=== PATIENT | female | born 1970 | race Caucasian/White ===

== ENCOUNTER 2018-03-10 08:03 | Inpatient (IN) | payer MEDICARE, MEDICAID ==
[~2018-03-10] VITALS: Ht 154.9 cm; Wt 79.8 kg
[~2018-03-10 08:03] MED LIST: ALBU18HF2 IH
--- NOTE | 2018-03-10 08:15 | NUR ---
PT BIB [facility] From Home "Had syncopal episode after dialysis yesterday fell on R side" PT IS AAOX4, NOT IN RESPIRATORY DISTRESS, V/S STABLE, SEEN AND EXAMINED BY DR. THACKER. KEPT RESTED AND COMFORTABLE.
[2018-03-10] MEDS: ACETAMINOPHEN ES 500 MG TABLET PO ONE ×2 (08:16→08:19)
--- NOTE | 2018-03-10 08:16 | NUR ---
PT LABS DRAWNED AND SENT TO LAB. AWAITING RESULTS.
[2018-03-10] MEDS ORDERED: ACETAMINOPHEN ES 500 MG TABLET ONE (08:17)
[2018-03-10 08:23] LABS: BASOPHILS # (AUTO) 0.1 /CMM (0.0-0.2); BASOPHILS % (AUTO) 1.2 % (0.0-2.0); EOSINOPHILS % (AUTO) 0.1 % (0.0-6.0); HEMATOCRIT 26 % (33-45); HEMOGLOBIN 8.1 g/dL (11.5-14.8); LYMPHOCYTES # (AUTO) 2.2 /CMM (0.8-4.8); MEAN CORPUSCULAR HGB CONC 32 g/dl (31.0-36.0); MEAN CORPUSCULAR VOLUME 103 fL (82-100); MONOCYTES # (AUTO) 0.7 /CMM (0.1-1.30); MONOCYTES % (AUTO) 7.7 % (2.0-12.0); NEUTROPHILS # (AUTO) 6.1 /CMM (1.8-8.9); PLATELET COUNT (AUTO) 277 /CMM (150-450); RED BLOOD CELL COUNT(AUTO) 2.49 MIL/uL (4.0-5.2); WHITE BLOOD COUNT (AUTO) 9.2 K/uL (4.3-11.0)
[2018-03-10] MEDS ORDERED: ATOR40TA PO (08:28)
[2018-03-10] MEDS ORDERED: FOLI0.8T23 PO (08:28)
[2018-03-10] MEDS ORDERED: AMLO10TA7 PO (08:28)
[2018-03-10] MEDS ORDERED: CALC667C6 PO (08:28)
[2018-03-10] MEDS ORDERED: NITR0.4T48 PO (08:28)
[2018-03-10] MEDS ORDERED: CARV6.252 PO (08:28)
[2018-03-10] MEDS ORDERED: PRED20TA PO (08:28)
[2018-03-10] MEDS ORDERED: ONDA4TAB10 PO (08:28)
[2018-03-10 08:39] LABS: CALCIUM, SERUM 9.2 mg/dL (8.5-10.1); CREATININE 6.6 mg/dL (0.6-1.3); POTASSIUM 4.1 mmol/L (3.5-5.1)
--- NOTE | 2018-03-10 08:40 | NUR ---
PT IS WHEELED TO CT SCAN VIA [facility].
[2018-03-10 08:45] LABS: ALBUMIN 2.9 g/dL (3.4-5.0); BILIRUBIN,DIRECT 0.1 mg/dL (0.0-0.2); BILIRUBIN,TOTAL 0.3 mg/dL (0.2-1.0); TOTAL PROTEIN, SERUM 6.9 g/dL (6.4-8.2)
[2018-03-10] MEDS ORDERED: HYDROMORPHONE INJ 2 MG/ML DISP.SYRIN IV ONE ×2 (10:30→13:00)
[2018-03-10] MEDS ORDERED: HYDROMORPHONE INJ 0.5 MG/0.5 ML SYRINGE ONE (10:31)
--- NOTE | 2018-03-10 10:34 | NUR ---
[facility] CALLED, DR. COONEY ON-CALL. TRANSFERRED CALL TO DR. THACKER.
--- NOTE | 2018-03-10 10:35 | NUR ---
REPORT GIVEN TO ADRIANA WANG FOR LAMIN.
[2018-03-10] MEDS: ONDANSETRON HCL/PF 4 MG/2 ML VIAL IVP ONE ×2 (10:39→10:43)
[2018-03-10] MEDS ORDERED: ONDANSETRON HCL/PF 4 MG/2 ML VIAL ONE (10:40)
--- NOTE | 2018-03-10 11:13 | NUR ---
WAITING FOR MRI PROCEDURE, PT AND FAMILY MEMBER AWARE OF 1 1/[address] MRI[address] COONEY REQUEST MRI RESULT BEFORE TRANSFERRING TO ROOM 322-2.
[2018-03-10] MEDS ORDERED: HYDROMORPHONE INJ 2 MG/ML DISP.SYRIN ONE (12:33)
--- NOTE | 2018-03-10 12:44 | NUR ---
TECH AT BEDSIDE PT IS WHEELED TO MRI VIA GURNEY.
--- NOTE | 2018-03-10 13:40 | NUR ---
PT IS BACK FROM THE MRI.
--- NOTE | 2018-03-10 14:21 | NUR ---
TELE/RN OPENING NOTE THE PATIENT IS RECEIVED ON A GURNEY. PATIENT IS TRANSFERRED TO BED BY 3 NURSE. SPINE PRECAUTIONS TAKEN. THE PATIENT IS ALERT AND ORIENTED X3. DENIES PAIN AT THIS TIME. RESPIRATION REGULAR AND UNLABORED. IN ROOM AIR AND DENIES SOB. RAC G 18 PATENT AND SALINE LOCKED. ORIENTATION TO THE ROOM/UNIT IS GIVEN. BED LOW AND LOCKED. SIDE RAILS UP X3. CALL LIGHT WITHIN REACH. WILL CONTINUE TO MONITOR.
[2018-03-10] MEDS ORDERED: Z GUARD REMEDY 2 OZ OINT TP PRN (14:30)
[2018-03-10] MEDS ORDERED: ACETAMINOPHEN 325 MG TABLET PO PRN (14:30)
[2018-03-10] MEDS ORDERED: MAGNESIUM HYDROXIDE 30 ML UDC PO PRN (14:30)
[2018-03-10] MEDS ORDERED: AMLODIPINE BESYLATE 10 MG TABLET PO PRN (14:30)
[2018-03-10] MEDS ORDERED: MAG HYDROX/AL HYDROX/SIMETH 30 ML UDC PO PRN (14:30)
[2018-03-10 14:40] VITALS: BP 118/65
[2018-03-10] MEDS ORDERED: CALC-7 PO (15:44)
[2018-03-10 16:00] VITALS: BP 118/65
[2018-03-10] MEDS: HYDROMORPHONE INJ 2 MG/ML DISP.SYRIN IV PRN ×2 (17:26→21:37)
[2018-03-10] MEDS: ONDANSETRON HCL/PF 4 MG/2 ML VIAL IVP PRN (17:31)
--- NOTE | 2018-03-10 17:31 | NUR ---
TELE/RN NOTE ZOFRAN 4 MG IV PUSH GIVEN PER ORDER FOR COMPLAIN OF NAUSEA.
[2018-03-10] MEDS: ATORVASTATIN 40 MG TABLET PO SCH (17:35)
[2018-03-10] MEDS: CARVEDILOL 6.25 MG TABLET PO SCH (17:35)
[2018-03-10] MEDS: CALCIUM ACETATE 667 MG TABLET PO SCH (17:35)
--- NOTE | 2018-03-10 17:35 | NUR ---
TELE/RN NOTE THE PATIENT VOMITED CLEAR LIQUID X1.
--- NOTE | 2018-03-10 18:25 | NUR ---
TELE/RN CLOSING NOTE THE PATIENT ALERT AND ORIENTED X3. DENIES PAIN AT THIS TIME.RESPIRATION REGULAR AND UNLABORED. DENIES SOB. IN ROOM AIR AND SATURATION IS A 96%. STILL WAITING FOR DELIVER LUMBAR BRACE. THE PATIENT DENIES NUMBING OR TINGLING SENSATION IN EXTREMITIES. ABLE TO MOVE EXTREMITIES WNL. EXTERNAL TELE BOX READING IS SR 95. PATIENT IN NO APPARENT DISTRESS.RAC G 18 PATENT AND SALINE LOCKED. RIGHT UPPER CHEST PERMACATH IN PLACE AND COVERED WITH DRESSING. BED LOW AND LOCKED. SIDE RAILS UP X3. CALL LIGHT WITHIN REACH. WILL ENDORSE TO ASSISTANT FIELD HOCKEY COACH.
--- NOTE | 2018-03-10 19:15 | NUR ---
SAND TECHNICIAN OPENING NOTES Received patient A/O x3, on semi-Scales's position on bed. On tele monitor with SR. On RA, no SOB/respiratory distress noted. Denies any discomfort at this time. Instructed to kept on bed rest, patient verbalized understanding. Awaiting for lumbar brace at this time. Kept bed low and locked, siderails x2 up. Call light at bedside. Will continue to monitor accordingly.
[2018-03-10 20:00] VITALS: BP 118/76
[2018-03-10 20:41] VITALS: BP 118/76
--- NOTE | 2018-03-10 23:58 | NUR ---
MANAGER AUTO NOTES BP - 155/102mmHg. Patient remained stable and denies any discomfort at this time. Norvasc administered as ordered. Will continue to monitor accordingly.
[2018-03-11] VITALS (7 sets, daily range): BP systolic 124–155; BP diastolic 68–102
[2018-03-11] MEDS: ZOLPIDEM TARTRATE 5 MG TABLET PO PRN ×2 (02:18→22:09)
--- NOTE | 2018-03-11 02:30 | NUR ---
PENSION MANAGER NOTES BP RECHECKED. 138/87 mmHg. Patient asleep at this time.
[2018-03-11] MEDS: HYDROMORPHONE INJ 2 MG/ML DISP.SYRIN IV PRN ×5 (06:31→23:16)
[2018-03-11 06:32] LABS: BASOPHILS % (AUTO) 0.1 % (0.0-2.0); EOSINOPHILS % (AUTO) 0.1 % (0.0-6.0); HEMATOCRIT 25 % (33-45); HEMOGLOBIN 7.9 g/dL (11.5-14.8); LYMPHOCYTES # (AUTO) 2.6 /CMM (0.8-4.8); LYMPHOCYTES % (AUTO) 21.5 % (20.0-44.0); MEAN CORPUSCULAR HGB CONC 32 g/dl (31.0-36.0); MEAN CORPUSCULAR VOLUME 101 fL (82-100); MONOCYTES # (AUTO) 0.8 /CMM (0.1-1.30); MONOCYTES % (AUTO) 6.8 % (2.0-12.0); NEUTROPHILS # (AUTO) 8.7 /CMM (1.8-8.9); NEUTROPHILS % (AUTO) 71.5 % (43.0-81.0); PLATELET COUNT (AUTO) 280 /CMM (150-450); RED BLOOD CELL COUNT(AUTO) 2.47 MIL/uL (4.0-5.2); WHITE BLOOD COUNT (AUTO) 12.2 K/uL (4.3-11.0)
--- NOTE | 2018-03-11 06:32 | NUR ---
DIGITAL CIRCUIT DESIGNER CLOSING NOTES Patient asleep on R side lying position with patent RAc G#18 SL. Kept on bed rest, offered bed ralph PRN. Kept clean dry and comfortable. All needs attended. Medicated for pain as ordered, noted effective. Kept bed low and locked, siderails x2 up. Call light within easy reach. No new unusualities noted within the shift. Endorsed to the next shift.
[2018-03-11 06:53] LABS: ALBUMIN 2.9 g/dL (3.4-5.0); BILIRUBIN,TOTAL 0.4 mg/dL (0.2-1.0); CALCIUM, SERUM 9.6 mg/dL (8.5-10.1); MAGNESIUM 2.1 mg/dL (1.8-2.4); POTASSIUM 5.2 mmol/L (3.5-5.1); TOTAL PROTEIN, SERUM 6.8 g/dL (6.4-8.2)
--- NOTE | 2018-03-11 07:13 | NUR ---
BRAIDED BAND ASSEMBLER OPENING NOTES RECEIVED PT AWAKE IN BED IN NO ACUTE SIGNS OF DISTRESS. A/O X3. ABLE TO VERBALIZED NEEDS, NO C/O PAIN OR DISCOMFORTS VOICED AT THIS TIME. ON TELEMONITORING WITH CURRENT READING OF SR WITH HR OF 89-94, NO C/O CARDIAC DISTRESS VOICED. IV ACCESS ON RAC INTACT AND PATENT. RUCW PERMACATH IN PLACE WITH DRESSING C/D/I. SAFETY MEASURES IN PLACE. BED IN LOW LOCKED POSITION WITH SR UP X2. CLIFFORD;L LIGHT IN REACH. WILL CONTINUE TO MONITOR PT ACCORDINGLY.
[2018-03-11 07:40] LABS: CREATININE 9.4 mg/dL (0.6-1.3)
[2018-03-11] MEDS: CALCIUM ACETATE 667 MG TABLET PO SCH ×3 (08:12→17:20)
[2018-03-11] MEDS: predniSONE 20 MG TABLET PO SCH (08:12)
[2018-03-11] MEDS: VIT B CMPLX 3/FA/VIT C/BIOTIN 1 TAB TABLET PO SCH (08:12)
[2018-03-11] MEDS: CARVEDILOL 6.25 MG TABLET PO SCH ×2 (08:12→16:50)
--- NOTE | 2018-03-11 08:37 | NUR ---
RN NOTES DR JUAN ORDERED TO CHECK ORTHOSTATIC BLOOD B PRESSURE: LYING 125/69, SITTING 116/77 [address] STANDING 128/88. DR JUAN ON UNIT AND MADE AWARE. WILL CONTINUE TO MONITOR
--- NOTE | 2018-03-11 09:45 | NUR ---
RN NOTES RECEIVED CALL THAT PT HAS ELEVATED BUN 90, CREATININE 9.4 AND PHOSPHOROUS 9.0, DR COONEY MADE AWARE WITH ORDER TO F/U WITH CASKET ASSEMBLER. LEFT MESSAGE TO DR RAVI ABOUT RESULTS, AWAITING FOR RESPONSE. WILL CONTINUE TO MONITOR.
--- NOTE | 2018-03-11 10:38 | NUR ---
RN NOTES/PAIN MANAGEMENT PATIENT NOTED GRIMACING AND SLIGHTLY RESTLESS IN BED WITH COMPLAINED OF RIGHT LOWER BACK PAIN WITH SCALE OF 10/10, PRN DILAUDID 0.5MG/0.25ML IVP ADMINISTERED AT 1032. WILL MONITOR AND REASSESS PT.
--- NOTE | 2018-03-11 11:38 | NUR ---
RN NOTES MD ORDER FOR BACK BRACE FOR PATIENT FAXED TO [facility] AT [phone]. CALLED AND SPOKE TO RAMY AFTER FAXING AND STATED THAT THEY RECEIVED THE REQUEST AND WILL BRING THE BRACE TO DAY. WILL F/U.
[2018-03-11] MEDS: SEVELAMER CARBONATE 800 MG TABLET PO SCH ×2 (12:43→17:20)
--- NOTE | 2018-03-11 14:39 | NUR ---
RN NOTES/PAIN MANAGEMENT PATIENT IN BED AND COMPLAINED OF RIGHT LOWER BACK PAIN WITH SCALE OF 8/10, PRN DILAUDID 0.5MG/0.25ML IVP ADMINISTERED AT 1434. WILL MONITOR AND REASSESS PT.
[2018-03-11] MEDS: ONDANSETRON HCL/PF 4 MG/2 ML VIAL IVP PRN (17:20)
[2018-03-11] MEDS: ATORVASTATIN 40 MG TABLET PO SCH (17:20)
--- NOTE | 2018-03-11 17:25 | NUR ---
RN NOTES PATIENT COMPLAINED OF NAUSEA, PRN ZOFRAN 4MG/2ML IVP ADMINISTERED AT 1720. WILL CONTINUE TO MONITOR.
--- NOTE | 2018-03-11 18:40 | NUR ---
MS RN CLOSING NOTES PT IN BED AWAKE AND RESTING AT MODERATE HIGH BACKREST POSITION. A/O X3, SAME ABLE TO MAKE NEEDS KNOWN. ON ROOM AIR, BREATHING EVEN AND UNLABORED. BACK BRACE AT BEDSIDE TABLE. IV ACCESS ON RAC INTACT AND PATENT, FLUSHES WELL. RUCW PERMA CATH IN PLACE WITH DRESSING C/D/I. ALL SAFETY MEASURES KEPT IN PLACE. BED IN LOW LOCKED POSITION WITH SR UP X2. CALL LIGHT IN REACH. ALL NEEDS AND CARE ATTENDED WELL. WILL ENDORSED TO POULTRY DRESSER NURSE FOR LAMIN.
--- NOTE | 2018-03-11 19:00 | NUR ---
MS RN OPENING NOTES Received patient A/O x3, on semi-Scales's position on bed talking to her visitor. With patent peripheral IV line RAG G#18, SL, with permacath RUCW dressing clean dry and intact. On RA, no SOB/respiratory distress noted. With complain of pain on lower back 09/28. For CT head without contrast tonight. Administered due meds as ordered, will continue to monitor. Followed up with radiology dept, CT scan will be done within tonight, patient notified. Kept bed low and locked, siderails X2 up. Call light at bedside. Will continue to monitor accordingly.
--- NOTE | 2018-03-11 20:30 | NUR ---
MS RN NOTES Patient picked up by radiology techs via bed for head CT scan without contrast.
--- NOTE | 2018-03-11 20:55 | NUR ---
MS RN NOTES Patient back from CT scan via hospital bed, accompanied by 2 Radiology Staff.
--- NOTE | 2018-03-12 06:34 | NUR ---
MS RN CLOSING NOTES Patient asleep on bed semi-Scales's position on bed. On RA, no SOB/respiratory distress noted. Head CT scan done, tolerated well. All due meds given as ordered. Medicated for pain, noted effective. For HD today. On lumbar brace PRN. All nursing needs attended. Kept bed low and locked, siderails x2 up. Call light at bedside. Endorsed to the next shift.
--- NOTE | 2018-03-12 07:15 | NUR ---
MS RN OPENING NOTE RECEIVED PT IN BED, ALERT AND ORIENTED X4. DENIES N/V, CHEST PAIN, SOB. BREATHING IS EVEN AND UNLABORED ON ROOM AIR. R AC #18G IV IS SALINE LOCKED WITHOUT REDNESS OR SWELLING, R UPPER CHEST WALL PERMCATH DRESSING IS CLEAN, DRY AND INTACT. PT IS REQUESTING TO BE PLACED IN A NEW ROOM DUE TO ROOMMATE BEING "TOO LOUD". INFORMED PT THAT THE NURSE WILL DISCUSS PT CONCERN WITH CHARGE NURSE, HOWEVER THAT THE CHARGE NURSE IS GETTING REPORT RIGHT NOW. THE PT VERBALIZED AGREEMENT TO WAIT. ALL NEEDS ATTENDED TO. BED IS LOCKED AND IN LOWEST POSITION, SIDE RAILS UP X2, BED ALARM ON, CALL LIGHT WITHIN REACH.
[2018-03-12 07:28] LABS: ALANINE AMINOTRANSFERASE 23 U/L (12-78); ALBUMIN 2.6 g/dL (3.4-5.0); ALKALINE PHOSPHATASE 61 U/L (46-116); ASPARTATE AMINOTRANSFERASE 11 U/L (15-37); BILIRUBIN,TOTAL 0.4 mg/dL (0.2-1.0); CALCIUM, SERUM 9.7 mg/dL (8.5-10.1); CARBON DIOXIDE 27 mmol/L (21-32); CHLORIDE 96 mmol/L (98-107); GLUCOSE 80 mg/dL (74-106); MAGNESIUM 2.2 mg/dL (1.8-2.4); POTASSIUM 5.6 mmol/L (3.5-5.1); SODIUM SERUM 141 mmol/L (136-145); TOTAL PROTEIN, SERUM 6.3 g/dL (6.4-8.2)
[2018-03-12 07:29] LABS: BASOPHILS % (AUTO) 0.2 % (0.0-2.0); EOSINOPHILS % (AUTO) 0.2 % (0.0-6.0); HEMATOCRIT 23 % (33-45); HEMOGLOBIN 7.2 g/dL (11.5-14.8); LYMPHOCYTES # (AUTO) 2.1 /CMM (0.8-4.8); LYMPHOCYTES % (AUTO) 18.4 % (20.0-44.0); MEAN CORPUSCULAR HGB CONC 31 g/dl (31.0-36.0); MEAN CORPUSCULAR VOLUME 101 fL (82-100); MONOCYTES # (AUTO) 0.7 /CMM (0.1-1.30); MONOCYTES % (AUTO) 6.1 % (2.0-12.0); NEUTROPHILS # (AUTO) 8.5 /CMM (1.8-8.9); NEUTROPHILS % (AUTO) 75.1 % (43.0-81.0); PLATELET COUNT (AUTO) 253 /CMM (150-450); RED BLOOD CELL COUNT(AUTO) 2.28 MIL/uL (4.0-5.2); WHITE BLOOD COUNT (AUTO) 11.3 K/uL (4.3-11.0)
[2018-03-12 07:32] LABS: CREATININE 11.7 mg/dL (0.6-1.3); PHOSPHORUS 9.8 mg/dL (2.5-4.9); UREA NITROGEN, BLOOD 115 mg/dL (7-18)
[2018-03-12 08:00] VITALS: BP 149/97
[2018-03-12] MEDS: HYDROMORPHONE INJ 2 MG/ML DISP.SYRIN IV PRN ×2 (08:45→13:14)
[2018-03-12] MEDS: predniSONE 20 MG TABLET PO SCH (08:46)
[2018-03-12] MEDS: CALCIUM ACETATE 667 MG TABLET PO SCH ×3 (08:46→17:21)
[2018-03-12] MEDS: SEVELAMER CARBONATE 800 MG TABLET PO SCH ×3 (08:46→17:20)
[2018-03-12] MEDS: CARVEDILOL 6.25 MG TABLET PO SCH ×2 (08:46→17:21)
[2018-03-12] MEDS: VIT B CMPLX 3/FA/VIT C/BIOTIN 1 TAB TABLET PO SCH (08:46)
--- NOTE | 2018-03-12 09:00 | NUR ---
MS RN NOTE PER CHARGE NURSE ENZO, PT WILL BE MOVED TO ROOM 101 AFTER DIALYSIS IS COMPLETE.
[2018-03-12] MEDS: HYDROCODONE/APAP 5/325MG 1 EACH TABLET PO PRN ×2 (11:32→23:42)
--- NOTE | 2018-03-12 11:50 | NUR ---
MS RN NOTE DIALYSIS COMPLETED WITH 2L OUT. VS WNL. PT WILL BE TRANSFERRED TO ROOM 101 SHORTLY, REPORT GIVEN TO ADRIANA MUJICA.
[2018-03-12] MEDS: ONDANSETRON HCL/PF 4 MG/2 ML VIAL IVP PRN ×2 (12:09→17:27)
--- NOTE | 2018-03-12 12:47 | NUR ---
SVP PROGRAMMATIC TV NOTES RECEIVED PATIENT FROM ADRIANA VEGA IN STABLE CONDITION. A/OX3, ABLE TO MAKE NEEDS KNOWN. NOT IN ANY FORM OF DISTRESS, NO SOB. COMPLAINTS OF BACK PAIN, WILL ADMINISTERED PAIN MEDS ORDERED. IV ACCESS INTACT AND PATENT. RUCW PERMACATH IN PLACED WITH C/D/I DRESSING. JUST FINISHED HEMODIALYSIS TODAY WITH 2L OUTPUT. KEPT PATIENT SAFE AND COMFORTABLE. FAMILY AT BEDSIDE. ALL BELONGINGS AT BEDSIDE. BED IN LOW/LOCKED POSITION, SIDERAILS UPX2, CALL LIGHT IN REACH. WILL CONTINUE TO MONIOTR ACCORDINGLY.
[2018-03-12 13:08] VITALS: BP 128/80
--- NOTE | 2018-03-12 14:15 | NUR ---
RN NOTES ASSESSED FOR PAIN AND OFFERED PAIN MEDICATIONS. PATIENT STATED "NO PAIN AND IM OK FOR NOW".
[2018-03-12 16:00] VITALS: BP 117/83
[2018-03-12] MEDS: ATORVASTATIN 40 MG TABLET PO SCH (17:20)
--- NOTE | 2018-03-12 19:12 | NUR ---
PATIENT IN STABLE CONDITION. ALL NEEDS ATTENDED AND PROVIDED. ALL DUE MEDICATIONS GIVEN ORDERED. KEPT PATIENT SAFE AND COMFORTABLE. BED IN LOW/LOCKED POSITION, SIDERAILS UP, CALL LIGHT IN REACH. ENDORSED TO NIGHT RN FOR LAMIN.
[2018-03-12 20:00] VITALS: BP 130/74
[2018-03-12] MEDS: ZOLPIDEM TARTRATE 5 MG TABLET PO PRN (23:42)
[2018-03-13 04:00] VITALS: BP 130/85
[2018-03-13] MEDS: HYDROCODONE/APAP 5/325MG 1 EACH TABLET PO PRN (06:48)
[2018-03-13] MEDS: CALCIUM ACETATE 667 MG TABLET PO SCH ×3 (07:55→17:44)
[2018-03-13] MEDS: SEVELAMER CARBONATE 800 MG TABLET PO SCH ×3 (07:55→17:45)
[2018-03-13 08:00] VITALS: BP 143/80
[2018-03-13] MEDS: predniSONE 20 MG TABLET PO SCH (09:37)
[2018-03-13] MEDS: VIT B CMPLX 3/FA/VIT C/BIOTIN 1 TAB TABLET PO SCH (09:37)
[2018-03-13] MEDS: HYDROMORPHONE INJ 2 MG/ML DISP.SYRIN IV PRN (09:37)
[2018-03-13] MEDS: CARVEDILOL 6.25 MG TABLET PO SCH ×2 (09:46→17:22)
[2018-03-13] MEDS: ONDANSETRON HCL/PF 4 MG/2 ML VIAL IVP PRN (09:54)
[2018-03-13 11:32] LABS: BASOPHILS % (AUTO) 0.1 % (0.0-2.0); EOSINOPHILS % (AUTO) 0.2 % (0.0-6.0); HEMATOCRIT 23 % (33-45); HEMOGLOBIN 7.4 g/dL (11.5-14.8); LYMPHOCYTES # (AUTO) 1.8 /CMM (0.8-4.8); LYMPHOCYTES % (AUTO) 21.1 % (20.0-44.0); MEAN CORPUSCULAR HGB CONC 32 g/dl (31.0-36.0); MEAN CORPUSCULAR VOLUME 100 fL (82-100); MONOCYTES # (AUTO) 0.7 /CMM (0.1-1.30); MONOCYTES % (AUTO) 8.5 % (2.0-12.0); NEUTROPHILS # (AUTO) 6.1 /CMM (1.8-8.9); NEUTROPHILS % (AUTO) 70.1 % (43.0-81.0); PLATELET COUNT (AUTO) 242 /CMM (150-450); WHITE BLOOD COUNT (AUTO) 8.7 K/uL (4.3-11.0)
[2018-03-13 12:06] LABS: CALCIUM, SERUM 9.4 mg/dL (8.5-10.1); MAGNESIUM 2.3 mg/dL (1.8-2.4); POTASSIUM 4.5 mmol/L (3.5-5.1)
[2018-03-13 12:13] LABS: CREATININE 8.6 mg/dL (0.6-1.3)
[2018-03-13 12:15] LABS: PHOSPHORUS 9.2 mg/dL (2.5-4.9)
[2018-03-13] MEDS ORDERED: HYDR-3972 PO (12:19)
[2018-03-13] MEDS ORDERED: ONDANSETRON 4 MG TAB.RAPDIS PO ONE (12:30)
[2018-03-13 16:00] VITALS: BP 126/81
[2018-03-13] MEDS ORDERED: ONDANSETRON 4 MG TAB.RAPDIS PO PRN (16:30)
[2018-03-13] MEDS: ATORVASTATIN 40 MG TABLET PO SCH (17:44)
[2018-03-13 20:00] VITALS: BP 117/77
[2018-05-24] MEDS ORDERED: ALBU8.5H8 INH (12:44)
[2018-05-24] MEDS ORDERED: PRED20TA PO (12:44)
== END 2018-03-13 20:00 | DRG 551 ==
LOC: ER 08:04 → TELE 10:35 → MED 03-11 10:59 → MEDSG1 03-12 12:36
PROVIDERS: ADMIT Internal Medicine
PROC: 5A1D70Z Performance of Urinary Filtration, Intermittent, Less than 6 Hours Per Day (ICD-10-PCS; principal; 2018-03-12)
DX: S32.019A Unspecified fracture of first lumbar vertebra, initial encounter for closed fracture (principal); N18.6 End stage renal disease; E46 Unspecified protein-calorie malnutrition; M31.0 Hypersensitivity angiitis; I12.0 Hypertensive chronic kidney disease with stage 5 chronic kidney disease or end stage renal disease; W18.30XA Fall on same level, unspecified, initial encounter; X58.XXXA Exposure to other specified factors, initial encounter; Z99.2 Dependence on renal dialysis; D63.8 Anemia in other chronic diseases classified elsewhere; E78.5 Hyperlipidemia, unspecified; E83.39 Other disorders of phosphorus metabolism; D75.89 Other specified diseases of blood and blood-forming organs; Z79.52 Long term (current) use of systemic steroids; R73.9 Hyperglycemia, unspecified; Y93.9 Activity, unspecified; Y92.009 Unspecified place in unspecified non-institutional (private) residence as the place of occurrence of the external cause; Z68.33 Body mass index [BMI] 33.0-33.9, adult
CPT/HCPCS: 36415; 70450-TC; 71250-TC; 72148-TC; 73564-TC; 80048-TC; 80053-TC; 80061-TC; 80076-TC; 83735-TC; 84100-TC; 84484-TC; 84703-TC; 85025-TC; 85730-TC; 87081-TC; 90935-TC; 93307-TC; 93880-TC; 97110-TC; 97116-TC; 97530-TC; G0378; J1170; J2405; Q0162

== ENCOUNTER 2018-05-22 10:01 | Emergency (ER) | payer MEDICARE, OTHER ==
[~2018-05-22] VITALS: Ht 154.9 cm; Wt 78.5 kg
[~2018-05-22 10:01] MED LIST changes: -ALBU18HF2 IH; +AMLO10TA7 PO; +ATOR40TA PO; +CALC-7 PO; +CALC667C6 PO; +CARV6.252 PO; +FOLI0.8T23 PO; +HYDR-3972 PO; +NITR0.4T48 PO; +ONDA4TAB10 PO; +PRED20TA PO
--- NOTE | 2018-05-22 10:05 | NUR ---
PT BIB DAD C/O FEELING SOB X 2 DAY S/P REDUCING PREDNISONE DOSE. PT IS AAOX4, NOTED SOB, V/S STABLE, HOOKED TO MONITOR, KEPT RESTED AND COMFORTABLE, WILL CONTINUE TO MONITOR.
--- NOTE | 2018-05-22 10:20 | NUR ---
SEEN AND EXAMINED BY DR. HERNANDEZ,
[2018-05-22] MEDS ORDERED: IPRATROPIUM NEB FS 0.5 MG/2.5 ML AMPUL.NEB NEB ONE (10:30)
[2018-05-22] MEDS ORDERED: ALBUTEROL FS 2.5 MG/3 ML VIAL.NEB NEB ONE (10:30)
--- NOTE | 2018-05-22 10:30 | NUR ---
IV LINE ESTABLISHED, LABS DRAWNED AND SENT TO LAB.
[2018-05-22 10:34] LABS: BASOPHILS % (AUTO) 0.4 % (0.0-2.0); EOSINOPHILS % (AUTO) 0.9 % (0.0-6.0); HEMATOCRIT 39 % (33-45); HEMOGLOBIN 12.2 g/dL (11.5-14.8); LYMPHOCYTES # (AUTO) 2.4 /CMM (0.8-4.8); LYMPHOCYTES % (AUTO) 26.5 % (20.0-44.0); MEAN CORPUSCULAR HGB CONC 31 g/dl (31.0-36.0); MEAN CORPUSCULAR VOLUME 83 fL (82-100); MONOCYTES # (AUTO) 0.9 /CMM (0.1-1.30); MONOCYTES % (AUTO) 10.2 % (2.0-12.0); NEUTROPHILS # (AUTO) 5.6 /CMM (1.8-8.9); PLATELET COUNT (AUTO) 427 /CMM (150-450); RED BLOOD CELL COUNT(AUTO) 4.72 MIL/uL (4.0-5.2)
[2018-05-22 10:42] LABS: CALCIUM, SERUM 10.2 mg/dL (8.5-10.1); CARBON DIOXIDE 30 mmol/L (21-32); CHLORIDE 97 mmol/L (98-107); GLUCOSE 95 mg/dL (74-106); POTASSIUM 5.3 mmol/L (3.5-5.1); SODIUM SERUM 137 mmol/L (136-145); UREA NITROGEN, BLOOD 68 mg/dL (7-18)
[2018-05-22 10:43] LABS: CREATININE 8.8 mg/dL (0.6-1.3)
--- NOTE | 2018-05-22 10:44 | NUR ---
Anabell rodriguez in ED - 05/22/18 at 1058 by DWAINE FLEXO OPERATOR AT [facility] FOR XRAY.
--- NOTE | 2018-05-22 10:45 | NUR ---
TILE EDGER AT BEDSIDE FOR XRAY.
[2018-05-22] MEDS ORDERED: IPRATROPIUM NEB FS 0.5 MG/2.5 ML AMPUL.NEB ONE (10:48)
[2018-05-22] MEDS ORDERED: ALBUTEROL FS 2.5 MG/3 ML VIAL.NEB ONE (10:48)
--- NOTE | 2018-05-22 10:50 | NUR ---
RT AT BEDSIDE FOR BREATHING TREATMENT.
[2018-05-22] MEDS ORDERED: methylPREDNISolone SOD SUCC 125 MG/2ML VIAL ONE (10:51)
[2018-05-22 10:58] LABS: ALANINE AMINOTRANSFERASE 18 U/L (12-78); ALBUMIN 3.1 g/dL (3.4-5.0); ALKALINE PHOSPHATASE 85 U/L (46-116); ASPARTATE AMINOTRANSFERASE 11 U/L (15-37); B-TYPE NATRIURETIC PEPTIDE 6242 PG/ML (0-125); BILIRUBIN,DIRECT 0.1 mg/dL (0.0-0.2); BILIRUBIN,TOTAL 0.4 mg/dL (0.2-1.0); TOTAL PROTEIN, SERUM 7.8 g/dL (6.4-8.2)
[2018-05-22] MEDS ORDERED: methylPREDNISolone SOD SUCC 40 MG/ML VIAL IV ONE (11:00)
[2018-05-22 11:21] VITALS: BP 113/83
--- NOTE | 2018-05-22 11:45 | NUR ---
IV removed. Catheter intact and site benign. Pressure and 4x4 applied to site. No bleeding noted. Patient discharged to home in stable condition. Written and verbal after care instructions given. Patient verbalizes understanding of instruction.
[2018-05-23] MEDS ORDERED: FURO40TA5 PO (14:56)
[2018-05-23] MEDS ORDERED: ZOLP5TAB8 PO (14:56)
[2018-05-23] MEDS ORDERED: PRED1TAB PO (19:41)
[2018-05-23] MEDS ORDERED: PANT40TA2 PO (19:41)
[2018-05-24] MEDS ORDERED: ALBU8.5H8 INH (12:44)
[2018-05-24] MEDS ORDERED: PRED20TA PO (12:44)
== END 2018-05-22 11:46 | disposition home or self-care (01) ==
LOC: ER 10:03
DX: R06.02 Shortness of breath (principal); M31.0 Hypersensitivity angiitis; Z87.891 Personal history of nicotine dependence; Z99.2 Dependence on renal dialysis
CPT/HCPCS: 36415; 71045; 80048; 80076; 83880; 84484; 85025; 93005; 94640; 96374; 99284; J2930

== ENCOUNTER 2018-05-23 12:47 | Inpatient (IN) | payer MEDICARE, OTHER ==
[~2018-05-23] VITALS: Ht 152.4 cm; Wt 78.0 kg
--- NOTE | 2018-05-23 13:28 | NUR ---
PT TO ER BED 4. AAOX4. PT IS SOB. PLACED ON O2 @2LPM FOR COMFORT. O2 SAT 99%. SEEN PT. AWAITNG FOR ORDERS.
[2018-05-23] MEDS ORDERED: IPRATROPIUM NEB FS 0.5 MG/2.5 ML AMPUL.NEB NEB ONE (13:30)
[2018-05-23] MEDS ORDERED: ALBUTEROL FS 2.5 MG/3 ML VIAL.NEB CONTNEB ONE (13:30)
--- NOTE | 2018-05-23 13:34 | NUR ---
FIELD INSURANCE SALES MANAGER AT BEDSIDE.
[2018-05-23 13:40] LABS: BASOPHILS # (AUTO) 0.1 /CMM (0.0-0.2); BASOPHILS % (AUTO) 0.9 % (0.0-2.0); EOSINOPHILS % (AUTO) 0.1 % (0.0-6.0); HEMATOCRIT 39 % (33-45); HEMOGLOBIN 12.4 g/dL (11.5-14.8); LYMPHOCYTES # (AUTO) 1.4 /CMM (0.8-4.8); MEAN CORPUSCULAR HGB CONC 32 g/dl (31.0-36.0); MEAN CORPUSCULAR VOLUME 82 fL (82-100); MONOCYTES # (AUTO) 0.9 /CMM (0.1-1.30); MONOCYTES % (AUTO) 7.4 % (2.0-12.0); NEUTROPHILS # (AUTO) 10.2 /CMM (1.8-8.9); NEUTROPHILS % (AUTO) 80.6 % (43.0-81.0); PLATELET COUNT (AUTO) 414 /CMM (150-450); RED BLOOD CELL COUNT(AUTO) 4.76 MIL/uL (4.0-5.2); WHITE BLOOD COUNT (AUTO) 12.7 K/uL (4.3-11.0)
[2018-05-23] MEDS ORDERED: ALBUTEROL FS 2.5 MG/3 ML VIAL.NEB ONE (13:43)
[2018-05-23 13:53] LABS: CALCIUM, SERUM 9.7 mg/dL (8.5-10.1); CARBON DIOXIDE 29 mmol/L (21-32); CHLORIDE 97 mmol/L (98-107); CREATININE 5.8 mg/dL (0.6-1.3); GLUCOSE 119 mg/dL (74-106); POTASSIUM 3.8 mmol/L (3.5-5.1); SODIUM SERUM 136 mmol/L (136-145); UREA NITROGEN, BLOOD 47 mg/dL (7-18)
[2018-05-23 14:05] LABS: ALKALINE PHOSPHATASE 86 U/L (46-116); BILIRUBIN,DIRECT 0.1 mg/dL (0.0-0.2); BILIRUBIN,TOTAL 0.3 mg/dL (0.2-1.0)
[2018-05-23 14:06] LABS: ALANINE AMINOTRANSFERASE 18 U/L (12-78); ALBUMIN 3.3 g/dL (3.4-5.0); ASPARTATE AMINOTRANSFERASE 11 U/L (15-37); B-TYPE NATRIURETIC PEPTIDE 9166 PG/ML (0-125)
--- NOTE | 2018-05-23 14:15 | NUR ---
ONGOING BREATHING TREATMENT
[2018-05-23] MEDS ORDERED: FURO40TA5 PO (14:56)
[2018-05-23] MEDS ORDERED: ZOLP5TAB8 PO (14:56)
--- NOTE | 2018-05-23 15:29 | NUR ---
REPORT GIVEN TO ARPAN WRIGHT
--- NOTE | 2018-05-23 15:31 | NUR ---
PATIENT REFUSED IV PERIPHERAL LINE INSERTION. PT PREFERS PO MEDICAION. MADE ARNOLD SNYDER AWARE.
--- NOTE | 2018-05-23 16:00 | NUR ---
MADE DR BONNER AWARE THAT PT REFUSED PERIPHERAL I INSERTION AND PREFFERED PO MEDICATIONS
[2018-05-23 16:36] LABS: ABG BASE EXCESS 0.5 mmol/L; ABG OXYGEN SATURATION 95.6 % (92.0-98.5); ABG PCO2 29.9 mmHg (35.0-45.0); ABG PH 7.502 (7.350-7.450); ABG PO2 84.4 mmHg (75.0-100.0); AaDO2 29.5 mmHg; MetHb 0.1 % (0.0-1.5); O2Hb 94.5 % (94.0-97.0); SITE, ABG Right Radial; VENT MODE, BG RA
[2018-05-23 17:00] VITALS: BP 128/82
--- NOTE | 2018-05-23 17:00 | NUR ---
RECEIVED PATIENT A/O X4 , AMBULATORY , ON O2 2L VIA NC SATURATING 98% . BREATHING UNLABORED AND EVEN, NO DISTRESS NOTED AT THIS TIME. SKIN INTACT. PATIENT HAS NO IV LINE AND REFUSING TO INSERT. WILL TRY LATER. PATIENT HAD HD TODAY OUTPATIENT. PATIENT ORIENTED TO UNIT AND ROOM, CALL LIGHT WITHIN REACH . AWAITING FOR NEW ORDERS.
[2018-05-23] MEDS ORDERED: ONDANSETRON HCL/PF 4 MG/2 ML VIAL IVP PRN (18:00)
[2018-05-23] MEDS ORDERED: ZOLPIDEM TARTRATE 5 MG TABLET PO PRN (18:00)
[2018-05-23] MEDS ORDERED: MAGNESIUM HYDROXIDE 30 ML UDC PO PRN (18:00)
[2018-05-23] MEDS ORDERED: Z GUARD REMEDY 2 OZ OINT TP PRN (18:00)
[2018-05-23] MEDS ORDERED: MAG HYDROX/AL HYDROX/SIMETH 30 ML UDC PO PRN (18:00)
[2018-05-23] MEDS ORDERED: ACETAMINOPHEN 325 MG TABLET PO PRN (18:00)
[2018-05-23] MEDS ORDERED: HYDROCODONE/APAP 5/325MG 1 EACH TABLET PO PRN (18:00)
--- NOTE | 2018-05-23 19:17 | NUR ---
PATIENT REFUSING IV LINE, RISK AND BENEFITS EXPLAINED. DR. BONNER AWARE .
--- NOTE | 2018-05-23 19:18 | NUR ---
ORDER TO D/C SOLUMEDROL AND START ON PREDNISONE 40 MG PO DAILY
--- NOTE | 2018-05-23 19:25 | NUR ---
CIGAR WRAPPER NOTE RECEIVED PT IN STABLE CONDITION A&O X3-4, ABLE TO MAKE NEEDS KNOWN. NO SIGNS OF SOB OR DISTRESS, NO C/O PAIN. BROTHER AT BEDSIDE WITH PT. PT IS REFUSING TO HAVE AN IV LINE PLACE, MADE AWARE. ALL CURRENT NEEDS ATTENDED TO. SAFETY PRECAUTIONS IN PLACE: BED LOW, LOCKED, UPPER RAILS UP, AND CALL LIGHT WITHIN REACH. WILL CONT TO MONITOR.
[2018-05-23] MEDS ORDERED: PANT40TA2 PO (19:41)
[2018-05-23] MEDS ORDERED: PRED1TAB PO (19:41)
--- NOTE | 2018-05-23 19:44 | NUR ---
MACHINE BURRER NOTE PAGED DR. CYR FOR NEW ORDERS IN REGARDS TO PT. MEDICATIONS. AWAITING RETURN CALL.
--- NOTE | 2018-05-23 20:20 | NUR ---
GAS PLUMBER NOTE PRN TYLENOL GIVEN. PT C/O OF SLIGHT HEADACHE. WILL CONT. TO MONITOR.
--- NOTE | 2018-05-23 20:42 | NUR ---
SENIOR UI UX DEVELOPER NOTE DR. CYR RETURNED CALL WITH NEW ORDER CARRIED OUT.
[2018-05-23] MEDS: IPRATROPIUM NEB FS 0.5 MG/2.5 ML AMPUL.NEB NEB SCH ×2 (20:51→22:38)
[2018-05-23] MEDS: ALBUTEROL FS 2.5 MG/0.5 ML VIAL.NEB NEB SCH (20:52)
[2018-05-23] MEDS ORDERED: ONDANSETRON HCL 4 MG/5 ML SOLUTION PO PRN (21:00)
--- NOTE | 2018-05-23 21:45 | NUR ---
BUSINESS PLANNER NOTE PRN NORCO 5-325MG GIVEN FOR LOWER BACK PAIN 09/28. WILL CONT TO MONITOR.
--- NOTE | 2018-05-23 22:20 | NUR ---
RESOLUTION MANAGER NOTE PAIN REASSESSED. PT STATES THAT PAIN IS 2/10 AND WOULD LIKE TO GO TO BACK TO SLEEP. WILL CONT TO MONITOR.
[2018-05-24] MEDS: IPRATROPIUM NEB FS 0.5 MG/2.5 ML AMPUL.NEB NEB SCH ×4 (03:23→15:20)
--- NOTE | 2018-05-24 06:21 | NUR ---
SMELTING ENGINEER NOTE PT IN STABLE CONDITION A&O X3-4, ABLE TO MAKE NEEDS KNOWN. NO SIGNS OF SOB OR DISTRESS, NO C/O PAIN. PT IS REFUSING TO HAVE AN IV LINE PLACE, MADE AWARE. ALL CURRENT NEEDS ATTENDED TO. SAFETY PRECAUTIONS IN PLACE: BED LOW, LOCKED, UPPER RAILS UP, AND CALL LIGHT WITHIN REACH. WILL CONT TO MONITOR AND ENDORSE TO NEXT SHIFT FOR LAMIN.
[2018-05-24 06:49] LABS: BASOPHILS % (AUTO) 0.3 % (0.0-2.0); EOSINOPHILS % (AUTO) 0.6 % (0.0-6.0); HEMATOCRIT 37 % (33-45); HEMOGLOBIN 11.8 g/dL (11.5-14.8); LYMPHOCYTES # (AUTO) 2.2 /CMM (0.8-4.8); LYMPHOCYTES % (AUTO) 34.8 % (20.0-44.0); MEAN CORPUSCULAR HGB CONC 32 g/dl (31.0-36.0); MEAN CORPUSCULAR VOLUME 82 fL (82-100); MONOCYTES # (AUTO) 0.8 /CMM (0.1-1.30); MONOCYTES % (AUTO) 12.3 % (2.0-12.0); NEUTROPHILS # (AUTO) 3.3 /CMM (1.8-8.9); PLATELET COUNT (AUTO) 351 /CMM (150-450); RED BLOOD CELL COUNT(AUTO) 4.54 MIL/uL (4.0-5.2); WHITE BLOOD COUNT (AUTO) 6.3 K/uL (4.3-11.0)
[2018-05-24 07:01] LABS: CALCIUM, SERUM 9.8 mg/dL (8.5-10.1); MAGNESIUM 2.4 mg/dL (1.8-2.4); PHOSPHORUS 7.6 mg/dL (2.5-4.9); POTASSIUM 4.9 mmol/L (3.5-5.1)
[2018-05-24 07:15] LABS: CREATININE 7.9 mg/dL (0.6-1.3)
--- NOTE | 2018-05-24 07:30 | NUR ---
WARDROBE CONSULTANT OPENING NOTES RECEIVED REPORT FROM TELETYPESETTER OPERATOR RN. PT IS IN BATHROOM AND AMBULATES AROUND ROOM. PT DENIES ANY SOB AT PRESENT MOMENT AND DENIES ANY PAIN WELL. PT REFUSED TO HAVE AN IV AND PER TELETYPESETTER OPERATOR MD IS AWARE. PT IS ON TELE MONITOR SR 95. BED IS LOCKED AND IN LOWEST POSITION. CALL LIGHT WITHIN REACH. WILL CONTINUE TO MONITOR.
[2018-05-24 08:00] VITALS: BP 132/83
[2018-05-24] MEDS: ALBUTEROL FS 2.5 MG/0.5 ML VIAL.NEB NEB SCH ×3 (08:02→15:20)
[2018-05-24] MEDS ORDERED: predniSONE 20 MG TABLET PO SCH (09:00)
[2018-05-24] MEDS ORDERED: methylPREDNISolone SOD SUCC 40 MG/ML VIAL IV SCH (09:00)
--- NOTE | 2018-05-24 09:42 | NUR ---
CARTON STAPLER NOTES PT STILL REFUSING IV ACCESS. WILL INFORM .
[2018-05-24] MEDS ORDERED: ONDANSETRON HCL 4 MG/5 ML SOLUTION PO PRN (10:30)
[2018-05-24] MEDS ORDERED: ONDANSETRON 4 MG TAB.RAPDIS PO PRN (10:30)
[2018-05-24 12:00] VITALS: BP 127/66
[2018-05-24] MEDS ORDERED: PRED20TA PO (12:44)
[2018-05-24] MEDS ORDERED: ALBU8.5H8 INH (12:44)
--- NOTE | 2018-05-24 14:30 | NUR ---
RN D/C NOTES PT IS STABLE AND DENIES ANY SOB OR PAIN AT TIME OF DC. EXITCARE AND PRESCRIPTION GIVEN TO PT AND FATHER JEREMIE. BELONGINGS LIST SIGNED AND GIVEN BACK TO PT. OPEN DEVELOPER OPERATOR WAS REMOVED. LAST VITALS TAKEN ON PT. PT WAS TAKEN OUT BY WHEEL CHAIR. SKIN WAS INTACT AND NO IV.
== END 2018-05-24 16:26 | disposition home or self-care (01) | DRG 545 ==
LOC: ER 12:56 → TELE1 15:51
PROVIDERS: ADMIT Student in an Organized Health Care Education/Training Program; ATTEND Student in an Organized Health Care Education/Training Program
DX: M31.0 Hypersensitivity angiitis (principal); J96.21 Acute and chronic respiratory failure with hypoxia; N18.6 End stage renal disease; I12.0 Hypertensive chronic kidney disease with stage 5 chronic kidney disease or end stage renal disease; E44.1 Mild protein-calorie malnutrition; Z99.2 Dependence on renal dialysis; E88.09 Other disorders of plasma-protein metabolism, not elsewhere classified; D72.828 Other elevated white blood cell count; Z79.52 Long term (current) use of systemic steroids; D63.1 Anemia in chronic kidney disease
CPT/HCPCS: 36415; 36600; 71045-TC; 80048-TC; 80076-TC; 83735-TC; 83880; 84100-TC; 84484-TC; 85025-TC; 87081-TC; 94799-TC; G0378; J2930; Q0162

== ENCOUNTER 2018-06-08 12:29 | Inpatient (IN) | payer MEDICARE, OTHER ==
[~2018-06-08] VITALS: Ht 154.9 cm; Wt 71.2 kg
[~2018-06-08 12:29] MED LIST changes: +ALBU8.5H8 INH; -CALC-7 PO; +FURO40TA5 PO; -HYDR-3972 PO; +PANT40TA2 PO; +ZOLP5TAB8 PO
--- NOTE | 2018-06-08 12:44 | NUR ---
C/O OUT OF BREATH STARTED THIS MORNING. STATES HAVING PROBLEMS SINCE STARTING CORTISONE 8 MONTHS AGO. PT ON DIALYSIS WITH PORT-A-CATH ON RIGHT UPPER CHEST. COMPLETED DIALYSIS TODAY. PT IS AOX4, AMB, TACHYCARDIC, TACHYPNEIC. SKIN INTACT, NO ACUTE DISTRESS NOTED. AT BEDSIDE. DR HAYWARD AT BEDSIDE FOR EVAL. AWAITING ORDERS. Addendum: 06/08/18 at 1409 by CJUWONO FATHER AT BEDSIDE*
[2018-06-08] MEDS ORDERED: predniSONE 20 MG TABLET ONE (12:51)
--- NOTE | 2018-06-08 12:56 | NUR ---
MEDICATION GIVEN PER ORDER. PT MYLA WELL. LETTER OF CREDIT DOCUMENT EXAMINER AT BEDSIDE FOR EKG.
[2018-06-08] MEDS ORDERED: ALBUTEROL FS 2.5 MG/3 ML VIAL.NEB ONE (12:59)
--- NOTE | 2018-06-08 12:59 | NUR ---
RT AT BEDSIDE FOR BREATHING TX
[2018-06-08] MEDS ORDERED: predniSONE 20 MG TABLET PO ONE (13:00)
[2018-06-08] MEDS ORDERED: ALBUTEROL FS 2.5 MG/3 ML VIAL.NEB CONTNEB ONE (13:00)
--- NOTE | 2018-06-08 13:02 | NUR ---
XRAY AT BEDSIDE
--- NOTE | 2018-06-08 13:10 | NUR ---
PT APPEARS VERY ANXIOUS, STATES SHE CAN'T BREATHE. O2 SAT 99% ON BREATHING TX. NOTIFIED
[2018-06-08] MEDS ORDERED: LORAZEPAM 1 MG TABLET ONE (13:13)
[2018-06-08] MEDS ORDERED: LORAZEPAM 1 MG TABLET PO ONE (13:30)
--- NOTE | 2018-06-08 13:55 | NUR ---
IV LINE ESTABLISHED, LABS DRAWNED AND SENT TO LAB.
[2018-06-08 13:56] LABS: BASOPHILS % (AUTO) 0.2 % (0.0-2.0); EOSINOPHILS % (AUTO) 0.5 % (0.0-6.0); HEMATOCRIT 36 % (33-45); HEMOGLOBIN 11.5 g/dL (11.5-14.8); LYMPHOCYTES # (AUTO) 1.1 /CMM (0.8-4.8); LYMPHOCYTES % (AUTO) 11.6 % (20.0-44.0); MEAN CORPUSCULAR HGB CONC 32 g/dl (31.0-36.0); MEAN CORPUSCULAR VOLUME 82 fL (82-100); MONOCYTES # (AUTO) 0.4 /CMM (0.1-1.30); MONOCYTES % (AUTO) 4.1 % (2.0-12.0); NEUTROPHILS # (AUTO) 7.9 /CMM (1.8-8.9); NEUTROPHILS % (AUTO) 83.6 % (43.0-81.0); PLATELET COUNT (AUTO) 333 /CMM (150-450); RED BLOOD CELL COUNT(AUTO) 4.37 MIL/uL (4.0-5.2); WHITE BLOOD COUNT (AUTO) 9.5 K/uL (4.3-11.0)
[2018-06-08] MEDS ORDERED: PRED5TAB PO (13:59)
[2018-06-08] MEDS ORDERED: ALBU8.5H8 IH (13:59)
[2018-06-08 14:04] LABS: CALCIUM, SERUM 9.2 mg/dL (8.5-10.1); CARBON DIOXIDE 28 mmol/L (21-32); CHLORIDE 93 mmol/L (98-107); CREATININE 6.5 mg/dL (0.6-1.3); GLUCOSE 126 mg/dL (74-106); POTASSIUM 4.6 mmol/L (3.5-5.1); SODIUM SERUM 133 mmol/L (136-145); UREA NITROGEN, BLOOD 47 mg/dL (7-18)
[2018-06-08 14:19] LABS: B-TYPE NATRIURETIC PEPTIDE 7140 PG/ML (0-125)
--- NOTE | 2018-06-08 14:33 | NUR ---
ADMIT TO 308-1 TELE DX SOB ACCEPTING HA HAAS
--- NOTE | 2018-06-08 14:35 | NUR ---
PT SLEEPING COMFORTABLY IN BED. VSS. NO COMPLAINTS AT THIS TIME.
--- NOTE | 2018-06-08 14:48 | NUR ---
REPORT GIVEN TO ADRIANA DIAZ FOR 308-1MS
--- NOTE | 2018-06-08 15:43 | NUR ---
[facility]
[2018-06-08 16:00] VITALS: BP 124/69
--- NOTE | 2018-06-08 16:00 | NUR ---
TELE ADMIT FROM ER AFTER REPORT RECEIVED FROM KATHLEEN. PATIENT ORIENTED TO PRIMARY RN, UNIT, ROOM, BED, AND UNIT POLICIES REGARDING PATIENT CARE AND VISITING HOURS. PATIENT NOW ON CONTINUOUS TELEMETRY MONITORING. PT WEIGHED BY BEDSCALE AND ENCOURAGED TO CALLIF THEY NEED SOMETHING. ALL QUESTIONS AND CONCERNS ADDRESSED, PATIENT VERBALIZED UNDERSTANDING.
[2018-06-08] MEDS ORDERED: IPRATROPIUM NEB FS 0.5 MG/2.5 ML AMPUL.NEB NEB PRN (18:00)
[2018-06-08] MEDS ORDERED: HYDROCODONE/APAP 5/325MG 1 EACH TABLET PO PRN (18:00)
[2018-06-08] MEDS ORDERED: Z GUARD REMEDY 2 OZ OINT TP PRN (18:00)
[2018-06-08] MEDS ORDERED: ZOLPIDEM TARTRATE 5 MG TABLET PO PRN ×2 (18:00→18:30)
[2018-06-08] MEDS ORDERED: ACETAMINOPHEN 325 MG TABLET PO PRN (18:00)
[2018-06-08] MEDS ORDERED: MAG HYDROX/AL HYDROX/SIMETH 30 ML UDC PO PRN (18:00)
[2018-06-08] MEDS ORDERED: ALBUTEROL FS 2.5 MG/0.5 ML VIAL.NEB NEB PRN (18:00)
[2018-06-08] MEDS ORDERED: ONDANSETRON HCL/PF 4 MG/2 ML VIAL IVP PRN (18:00)
[2018-06-08] MEDS ORDERED: MAGNESIUM HYDROXIDE 30 ML UDC PO PRN (18:00)
[2018-06-08] MEDS ORDERED: AMLODIPINE BESYLATE 10 MG TABLET PO PRN (18:30)
[2018-06-08] MEDS ORDERED: NITROGLYCERIN 0.4 MG/TAB BOTTLE SL PRN (18:30)
[2018-06-08] MEDS: CALCIUM ACETATE 667 MG TABLET PO SCH (18:32)
--- NOTE | 2018-06-08 19:02 | NUR ---
CHANGE OF SHIFT REPORT PT RESTING COMFORTABLY IN BED. NO S/S OR C/O PAIN OR DISTRESS NOTED. SIDE RAILS UP X2, CALL LIGHT LEFT WITHIN REACH. NO SIGNIFICANT CHANGES SINCE ADMISSION. WILL GIVE REPORT TO JOHANNA WRIGHT.
[2018-06-08 20:00] VITALS: BP 126/81
--- NOTE | 2018-06-08 20:00 | NUR ---
CLAM SORTER NOTES RECEIVED PATIENT AWAKE IN BED WITH NO DISTRESS NOTED. CALL LIGHT WITHIN REACH. PERIPHERAL LINE INTACT AND PATENT. NO C/O PAIN OR DISCOMFORT. NO SOB NOTED WITH SPO2 AT 98% AT RA. ENCOURAGED USE OF CALL LIGHT FOR ASSISTANCE AND VERBALIZED GOOD UNDERSTANDING. ROOM FREE OF CLUTTER AND BELONGINGS KEPT NEAR BEDSIDE. BED IN LOW LOCK SETTING. WILL CONTINUE TO MONITOR.
[2018-06-09] VITALS: BP 127/75
[2018-06-09 04:00] VITALS: BP 123/75
--- NOTE | 2018-06-09 06:42 | NUR ---
GROUT WORKER NOTES PATIENT ASLEEP IN BED WITH NO DISTRESS NOTED. CALL LIGHT WITHIN REACH. PERIPHERAL LINE INTACT AND PATENT. NO C/O PAIN OR DISCOMFORT. ROOM FREE OF CLUTTER AND BELONGINGS KEPT NEAR BEDSIDE. BED IN LOW LOCK SETTING. WILL CONTINUE TO MONITOR
[2018-06-09 07:06] LABS: BASOPHILS % (AUTO) 0.1 % (0.0-2.0); HEMATOCRIT 35 % (33-45); HEMOGLOBIN 10.8 g/dL (11.5-14.8); LYMPHOCYTES # (AUTO) 1.5 /CMM (0.8-4.8); LYMPHOCYTES % (AUTO) 19.6 % (20.0-44.0); MEAN CORPUSCULAR HGB CONC 31 g/dl (31.0-36.0); MEAN CORPUSCULAR VOLUME 82 fL (82-100); MONOCYTES # (AUTO) 0.3 /CMM (0.1-1.30); MONOCYTES % (AUTO) 3.6 % (2.0-12.0); NEUTROPHILS # (AUTO) 5.9 /CMM (1.8-8.9); NEUTROPHILS % (AUTO) 76.7 % (43.0-81.0); PLATELET COUNT (AUTO) 323 /CMM (150-450); RED BLOOD CELL COUNT(AUTO) 4.21 MIL/uL (4.0-5.2); WHITE BLOOD COUNT (AUTO) 7.7 K/uL (4.3-11.0)
[2018-06-09 07:30] LABS: CALCIUM, SERUM 10.2 mg/dL (8.5-10.1); MAGNESIUM 2.6 mg/dL (1.8-2.4)
[2018-06-09 07:31] LABS: CREATININE 8.4 mg/dL (0.6-1.3)
[2018-06-09 07:33] LABS: PHOSPHORUS 8.9 mg/dL (2.5-4.9); POTASSIUM 6.5 mmol/L (3.5-5.1)
--- NOTE | 2018-06-09 07:45 | NUR ---
M/S RN NOTES DAO FROM LAB CALLED DUE TO CRITICAL LEVEL OF POTASSIUM WITH 6.5, PH 8.9. NOTIFIED MD. WILL SEE PATIENT TODAY.
[2018-06-09 08:00] VITALS: BP 133/90
--- NOTE | 2018-06-09 08:00 | NUR ---
CREDIT PROCESSOR OPENING NOTES RECEIVED PATIENT ON BED IN SITTING, A/O X 4 AND ABLE TO MAKE NEEDS KNOWN, RESPONSIVE TO ALL STIMULI. RESPIRATION EVEN AND NON LABORED WITH NO ACUTE RESPIRATORY DISTRESS, ON ROOM AIR WITH OXYGEN PREPARED NEEDED. ABDOMEN SOFT AND NON DISTENDED WITH ACTIVE BOWEL SOUNDS TO ALL QUADRANTS. SKIN WARM TO TOUCH AND DRY. PATIENT COMPLAIN OF 5/10 PAIN ON BOTH LEGS BUT TOLERABLE, WILL ADMINISTER PAIN MEDICATION ORDERED. IV SITE AT LEFT AC GAUGE 20 WITH NO S/SX OF INFILTRATION. TELE MONITOR SHOWS SINUS TACHYCARDIA 100. ALL CONCERNS ADDRESSED. WILL CONTINUE TO EVALUATE CARE.
[2018-06-09] MEDS: CALCIUM ACETATE 667 MG TABLET PO SCH ×3 (08:17→17:33)
[2018-06-09] MEDS: PANTOPRAZOLE 40 MG TABLET.DR PO SCH ×2 (08:17→17:00)
[2018-06-09] MEDS: CARVEDILOL 6.25 MG TABLET PO SCH ×2 (08:18→17:00)
[2018-06-09] MEDS: methylPREDNISolone SOD SUCC 125 MG/2ML VIAL IV SCH ×3 (08:19→17:00)
--- NOTE | 2018-06-09 08:20 | NUR ---
M/S RN NOTES PATIENT SEEN BY DR. BONNER AND REFER TO PATIENT TO NEPHRO AND PULMO. WILL CONTINUE TO MONITOR.
[2018-06-09] MEDS ORDERED: VIT B CMPLX 3/FA/VIT C/BIOTIN 1 TAB TABLET PO SCH (09:00)
[2018-06-09] MEDS ORDERED: FUROSEMIDE 40 MG TABLET PO SCH (09:00)
--- NOTE | 2018-06-09 13:00 | NUR ---
M/S RN NOTES PATIENT DIALYSIS DONE WITH OUTPUT OF 1L. WILL CONTINUE TO MONITOR.
[2018-06-09 16:00] VITALS: BP 116/82
--- NOTE | 2018-06-09 17:30 | NUR ---
M/S PASTING MACHINE OPERATOR NOTES PATIENT DISCHARGED ACCOMPANIED BY JEREMIE, FATHER. PATIENT WHEELED OUT BY PAVEL YOUNGBLOOD IN SAFE CONDITION. PATIENT A/O X 4 AND ABLE TO MADE NEEDS KNOWN. RESPIRATION NOT IN ACUTE DISTRESS, SATING ON 98% IN ROOM AIR. ABDOMEN SOFT AND NON DISTENDED WITH ACTIVE BOWEL SOUNDS, NO BM TODAY BUT WITH URGE TO DO SO. SKIN REMAINED INTACT AND DRY WITH RIGHT UPPER CHEST HD SITE. DENIES PAIN AND DISCOMFORT. PATIENT EDUCATION AND EXIT CARE DONE, PREDNISONE 5 MG TAB PO QD INFORMED AND IMPORTANCE OF COMPLYING IN MEDICATION. PATIENT REFUSED 5PM AND 6PM DUE MEDICATION SHE WILL TAKE HER MEDICATIONS AT HOME SINCE SHE HAS STOCKS. IV ON RIGHT AC TAKEN OFF WITH NO S/SX OF INFECTION/INFLAMMATION. NAME BAND CUT OFF. ALL CONCERNS ATTENDED. LEFT IN A PRIVATE CARE WITH STABLE CONDITION.
[2018-06-09] MEDS ORDERED: ATORVASTATIN 40 MG TABLET PO SCH (18:00)
== END 2018-06-09 17:37 | disposition home or self-care (01) | DRG 189 ==
LOC: ER 12:31 → TELE 14:36 → MED 06-09 08:13
PROVIDERS: ADMIT Student in an Organized Health Care Education/Training Program; ATTEND Student in an Organized Health Care Education/Training Program
PROC: 5A1D70Z Performance of Urinary Filtration, Intermittent, Less than 6 Hours Per Day (ICD-10-PCS; principal; 2018-06-09)
DX: J96.21 Acute and chronic respiratory failure with hypoxia (principal); N18.6 End stage renal disease; M31.0 Hypersensitivity angiitis; I12.0 Hypertensive chronic kidney disease with stage 5 chronic kidney disease or end stage renal disease; E46 Unspecified protein-calorie malnutrition; E83.52 Hypercalcemia; E87.5 Hyperkalemia; Z99.2 Dependence on renal dialysis; D63.8 Anemia in other chronic diseases classified elsewhere; E88.09 Other disorders of plasma-protein metabolism, not elsewhere classified; Z79.52 Long term (current) use of systemic steroids
CPT/HCPCS: 36415; 71045-TC; 80048-TC; 83735-TC; 83880; 84100-TC; 84132-TC; 84484-TC; 84702-TC; 85025-TC; 87081-TC; 90935-TC; A6253; A6403; G0378; J2930

== ENCOUNTER 2018-07-23 13:10 | Emergency (ER) | payer MEDICARE, MEDICAID ==
[~2018-07-23] VITALS: Ht 154.9 cm; Wt 78.9 kg
[~2018-07-23 13:10] MED LIST changes: +ALBU8.5H8 IH; -ALBU8.5H8 INH; -PRED20TA PO; +PRED5TAB PO
--- NOTE | 2018-07-23 13:26 | NUR ---
BIB , C/O SOB STARTED 3hrs PRESS OPERATOR CARBON BLOCKS. SaO2 98% ON RA. NO ACUTE DISTRESS NOTED. HOOKED TO MONITOR AND READY FOR EVAL.
[2018-07-23] MEDS ORDERED: ALBUTEROL FS 2.5 MG/3 ML VIAL.NEB CONTNEB ONE (13:30)
[2018-07-23] MEDS ORDERED: IPRATROPIUM NEB FS 0.5 MG/2.5 ML AMPUL.NEB NEB ONE (13:30)
[2018-07-23] MEDS ORDERED: predniSONE 20 MG TABLET PO ONE (13:30)
[2018-07-23 13:39] LABS: BASOPHILS # (AUTO) 0.1 /CMM (0.0-0.2); BASOPHILS % (AUTO) 0.8 % (0.0-2.0); EOSINOPHILS % (AUTO) 0.4 % (0.0-6.0); HEMATOCRIT 39 % (33-45); HEMOGLOBIN 12.7 g/dL (11.5-14.8); LYMPHOCYTES # (AUTO) 1.1 /CMM (0.8-4.8); LYMPHOCYTES % (AUTO) 14.4 % (20.0-44.0); MEAN CORPUSCULAR HGB CONC 33 g/dl (31.0-36.0); MEAN CORPUSCULAR VOLUME 83 fL (82-100); MONOCYTES # (AUTO) 0.9 /CMM (0.1-1.30); MONOCYTES % (AUTO) 11.7 % (2.0-12.0); NEUTROPHILS # (AUTO) 5.8 /CMM (1.8-8.9); NEUTROPHILS % (AUTO) 72.7 % (43.0-81.0); PLATELET COUNT (AUTO) 346 /CMM (150-450); RED BLOOD CELL COUNT(AUTO) 4.69 MIL/uL (4.0-5.2)
[2018-07-23] MEDS ORDERED: predniSONE 20 MG TABLET ONE (13:43)
[2018-07-23 13:44] LABS: CALCIUM, SERUM 9.4 mg/dL (8.5-10.1); CARBON DIOXIDE 28 mmol/L (21-32); CHLORIDE 93 mmol/L (98-107); CREATININE 6.7 mg/dL (0.6-1.3); GLUCOSE 98 mg/dL (74-106); POTASSIUM 4.1 mmol/L (3.5-5.1); SODIUM SERUM 132 mmol/L (136-145); UREA NITROGEN, BLOOD 62 mg/dL (7-18)
[2018-07-23] MEDS ORDERED: ALBUTEROL FS 2.5 MG/3 ML VIAL.NEB ONE (13:55)
[2018-07-23] MEDS ORDERED: IPRATROPIUM NEB FS 0.5 MG/2.5 ML AMPUL.NEB ONE (13:55)
--- NOTE | 2018-07-23 13:55 | NUR ---
RT AT BEDSIDE FOR BREATHING TX
[2018-07-23 14:00] LABS: B-TYPE NATRIURETIC PEPTIDE 3148 PG/ML (0-125)
--- NOTE | 2018-07-23 14:24 | NUR ---
Patient discharged to home in stable condition. Written and verbal after care instructions given. Patient verbalizes understanding of instruction.
[2018-07-23 15:30] VITALS: BP 138/91
== END 2018-07-23 14:24 | disposition home or self-care (01) ==
LOC: ER 13:10
DX: R06.02 Shortness of breath (principal); M31.0 Hypersensitivity angiitis; N18.6 End stage renal disease; F17.200 Nicotine dependence, unspecified, uncomplicated; Z99.2 Dependence on renal dialysis; Z79.899 Other long term (current) drug therapy
CPT/HCPCS: 36415; 71045; 80048; 83880; 84484; 85025; 93005; 94640 ×2; 99284; J7512

== ENCOUNTER 2018-08-30 18:11 | Emergency (ER) | payer MEDICARE, MEDICAID ==
[~2018-08-30] VITALS: Ht 160 cm; Wt 64.9 kg
[2018-08-30 18:53] VITALS: BP 145/77
[2018-08-30] MEDS ORDERED: ACETAMINOPHEN ES 500 MG TABLET PO ONE (19:30)
[2018-08-30] MEDS ORDERED: ACETAMINOPHEN ES 500 MG TABLET ONE (19:34)
--- NOTE | 2018-08-30 19:58 | NUR ---
PROMOTIONAL MARKETING ANALYST AT BEDSIDE FOR XRAY.
--- NOTE | 2018-08-30 21:00 | NUR ---
Patient discharged to home in stable condition. Written and verbal after care instructions given. Patient verbalizes understanding of instruction.
== END 2018-08-30 21:03 | disposition home or self-care (01) ==
LOC: ER 18:15
DX: S62.666A Nondisplaced fracture of distal phalanx of right little finger, initial encounter for closed fracture (principal); M31.0 Hypersensitivity angiitis; F17.200 Nicotine dependence, unspecified, uncomplicated; W18.09XA Striking against other object with subsequent fall, initial encounter; Y93.89 Activity, other specified; Y92.89 Other specified places as the place of occurrence of the external cause; Y99.8 Other external cause status
CPT/HCPCS: 29130; 73140; 99283; J7040

== ENCOUNTER 2018-10-27 11:26 | Emergency (ER) | payer MEDICARE, MEDICAID ==
[~2018-10-27] VITALS: Ht 154.9 cm; Wt 78.5 kg
--- NOTE | 2018-10-27 12:20 | NUR ---
BILAT ELBOW AND HAND PAIN AND SWELLING NOTED YESTERDAY. WORSE ON LEFT ELBOW. RIGHT ELBOW SHOWS SLIGHT DEFORMITY. HANDS SENSITIVE TO TOUCH. ALSO C/O RIGHT KNEE PAIN. APPERAS SLIGHTLY ANXIOUS. DENIES ANY SOB, WEAKNESS, DIZZINESS, N/V, OR ANY OTHER MEDICAL COMPLAINTS. AOX4, AMBULATORY, VSS, RR EVEN AND UNLABORED ON RA. FATHER AT BEDSIDE. SEEN BY ARNOLD ROA. AWAITING ORDERS.
[2018-10-27] MEDS ORDERED: TRAMADOL HCL 50 MG TABLET ONE (12:29)
[2018-10-27] MEDS ORDERED: TRAMADOL HCL 50 MG TABLET PO ONE (12:30)
--- NOTE | 2018-10-27 12:42 | NUR ---
XRAY AT BEDSIDE
[2018-10-27 14:00] VITALS: BP 126/85
== END 2018-10-27 14:11 | disposition home or self-care (01) ==
LOC: ER 11:26
DX: M25.542 Pain in joints of left hand (principal); M25.541 Pain in joints of right hand; M25.522 Pain in left elbow; M25.521 Pain in right elbow; F17.200 Nicotine dependence, unspecified, uncomplicated; M31.0 Hypersensitivity angiitis; N18.6 End stage renal disease; Z99.2 Dependence on renal dialysis; Z79.899 Other long term (current) drug therapy
CPT/HCPCS: 73080-TC; 73130-TC

== ENCOUNTER 2018-11-15 06:20 | Emergency (ER) | payer MEDICARE, MEDICAID ==
[~2018-11-15] VITALS: Ht 154.9 cm; Wt 78.9 kg
--- NOTE | 2018-11-15 06:30 | NUR ---
PT BIBFAMILY C/C N/V/D SINCE LAST NIGHT. PT DENIES SOB. PT AOX4. NAD NOTED. RESP EVEN AND UNLABORED. PT ON MONITOR IN BED 4 WITH FAMILY AT BEDSIDE. WILL CONTINUE TO MONITOR.
--- NOTE | 2018-11-15 06:42 | NUR ---
TECH AT BEDSIDE FOR EKG
[2018-11-15] MEDS ORDERED: ONDANSETRON HCL/PF 4 MG/2 ML VIAL ONE (06:49)
--- NOTE | 2018-11-15 06:53 | NUR ---
BLOOD DRAWN AND GIVEN TO LAB
--- NOTE | 2018-11-15 06:55 | NUR ---
RADIOLOGY AT BEDSIDE FOR XRAY
[2018-11-15] MEDS ORDERED: IV NS 0.9% 500 ML BAG IV ONE (07:00)
[2018-11-15] MEDS ORDERED: ONDANSETRON HCL/PF 4 MG/2 ML VIAL IVP ONE (07:00)
[2018-11-15 07:02] LABS: BASOPHILS % (AUTO) 0.3 % (0.0-2.0); EOSINOPHILS % (AUTO) 0.2 % (0.0-6.0); HEMATOCRIT 39 % (33-45); HEMOGLOBIN 12.6 g/dL (11.5-14.8); LYMPHOCYTES % (AUTO) 5.7 % (20.0-44.0); MEAN CORPUSCULAR HGB CONC 33 g/dl (31.0-36.0); MEAN CORPUSCULAR VOLUME 85 fL (82-100); MONOCYTES % (AUTO) 3.8 % (2.0-12.0); PLATELET COUNT (AUTO) 316 /CMM (150-450); RED BLOOD CELL COUNT(AUTO) 4.54 MIL/uL (4.0-5.2); WHITE BLOOD COUNT (AUTO) 13.9 K/uL (4.3-11.0)
[2018-11-15 07:03] LABS: LYMPHOCYTES # (AUTO) 0.8 /CMM (0.8-4.8); MONOCYTES # (AUTO) 0.5 /CMM (0.1-1.30); NEUTROPHILS # (AUTO) 12.5 /CMM (1.8-8.9)
[2018-11-15 07:16] LABS: ALANINE AMINOTRANSFERASE 23 U/L (12-78); ALBUMIN 3.5 g/dL (3.4-5.0); ALKALINE PHOSPHATASE 93 U/L (46-116); ASPARTATE AMINOTRANSFERASE 11 U/L (15-37); BILIRUBIN,DIRECT 0.2 mg/dL (0.0-0.2); BILIRUBIN,TOTAL 0.5 mg/dL (0.2-1.0); CALCIUM, SERUM 10.3 mg/dL (8.5-10.1); CARBON DIOXIDE 22 mmol/L (21-32); CHLORIDE 92 mmol/L (98-107); GLUCOSE 118 mg/dL (74-106); LIPASE 703 U/L (73-393); POTASSIUM 4.3 mmol/L (3.5-5.1); SODIUM SERUM 135 mmol/L (136-145); TOTAL PROTEIN, SERUM 8.2 g/dL (6.4-8.2); UREA NITROGEN, BLOOD 76 mg/dL (7-18)
[2018-11-15 07:20] LABS: CREATININE 8.8 mg/dL (0.6-1.3)
[2018-11-15 08:09] VITALS: BP 138/85
--- NOTE | 2018-11-15 08:10 | NUR ---
Patient discharged to home in stable condition. Written and verbal after care instructions given. Patient verbalizes understanding of instruction. home ambulatory-stable w/spouse
== END 2018-11-15 08:10 | disposition home or self-care (01) ==
LOC: ER 06:23
DX: R11.2 Nausea with vomiting, unspecified (principal); R19.7 Diarrhea, unspecified; N18.9 Chronic kidney disease, unspecified; M31.0 Hypersensitivity angiitis; F17.200 Nicotine dependence, unspecified, uncomplicated; R00.0 Tachycardia, unspecified; Z99.2 Dependence on renal dialysis
CPT/HCPCS: 36415; 71045; 80048; 80076; 83690; 84484; 85025; 93005; 96374; 99284; J2405; J7040

== ENCOUNTER 2018-11-29 14:57 | Emergency (ER) | payer MEDICARE, MEDICAID ==
[~2018-11-29] VITALS: Ht 162.6 cm; Wt 77.1 kg
[2018-11-29 17:47] VITALS: BP 180/102
[2018-11-29] MEDS ORDERED: IV NS 0.9% 1,000 ML BAG IV ONE (22:00)
[2018-11-29] MEDS ORDERED: ONDANSETRON 4 MG TAB.RAPDIS ONE (22:00)
[2018-11-29] MEDS ORDERED: ONDANSETRON HCL/PF 4 MG/2 ML VIAL IVP ONE (22:00)
[2018-11-29 22:17] LABS: BASOPHILS # (AUTO) 0.1 /CMM (0.0-0.2); BASOPHILS % (AUTO) 1.3 % (0.0-2.0); EOSINOPHILS % (AUTO) 1.4 % (0.0-6.0); HEMATOCRIT 37 % (33-45); LYMPHOCYTES # (AUTO) 1.8 /CMM (0.8-4.8); LYMPHOCYTES % (AUTO) 21.7 % (20.0-44.0); MEAN CORPUSCULAR HGB CONC 33 g/dl (31.0-36.0); MEAN CORPUSCULAR VOLUME 88 fL (82-100); MONOCYTES # (AUTO) 0.7 /CMM (0.1-1.30); MONOCYTES % (AUTO) 7.7 % (2.0-12.0); NEUTROPHILS # (AUTO) 5.7 /CMM (1.8-8.9); NEUTROPHILS % (AUTO) 67.9 % (43.0-81.0); PLATELET COUNT (AUTO) 384 /CMM (150-450); RED BLOOD CELL COUNT(AUTO) 4.21 MIL/uL (4.0-5.2); WHITE BLOOD COUNT (AUTO) 8.4 K/uL (4.3-11.0)
--- NOTE | 2018-11-29 22:23 | NUR ---
ESCORTED PT TO RESTROOM FOR STOOL SAMPLE. PT UNABLE TO PROVIDE SAMPLE AT THIS TIME.
[2018-11-29] MEDS ORDERED: ONDANSETRON 4 MG TAB.RAPDIS SL ONE (22:30)
[2018-11-29 22:32] LABS: CALCIUM, SERUM 10.1 mg/dL (8.5-10.1)
[2018-11-29 22:39] LABS: ALBUMIN 3.3 g/dL (3.4-5.0); BILIRUBIN,DIRECT 0.1 mg/dL (0.0-0.2); BILIRUBIN,TOTAL 0.6 mg/dL (0.2-1.0); TOTAL PROTEIN, SERUM 7.7 g/dL (6.4-8.2)
[2018-11-29 22:45] LABS: CREATININE 9.1 mg/dL (0.6-1.3)
== END 2018-11-29 23:24 | disposition home or self-care (01) ==
LOC: ER 15:02
DX: M31.0 Hypersensitivity angiitis (principal); R11.2 Nausea with vomiting, unspecified; R19.7 Diarrhea, unspecified; R10.84 Generalized abdominal pain; N18.9 Chronic kidney disease, unspecified; F17.200 Nicotine dependence, unspecified, uncomplicated; Z79.899 Other long term (current) drug therapy
CPT/HCPCS: 36415; 80048; 80076; 83690; 85025; 99283; Q0162

== ENCOUNTER 2019-01-07 03:10 | Inpatient (IN) | payer MEDICARE, OTHER ==
[~2019-01-07] VITALS: Ht 154.9 cm; Wt 84.5 kg
[2019-01-07] MEDS ORDERED: ASPIRIN 81 MG TAB.CHEW PO ONE (03:30)
[2019-01-07] MEDS ORDERED: IPRATROPIUM NEB FS 0.5 MG/2.5 ML AMPUL.NEB NEB ONE (03:30)
[2019-01-07] MEDS ORDERED: NITROGLYCERIN PACKET 1 GM PACKET TOP ONE (03:30)
[2019-01-07] MEDS ORDERED: ALBUTEROL FS 2.5 MG/3 ML VIAL.NEB NEB ONE (03:30)
[2019-01-07] MEDS ORDERED: FUROSEMIDE 40 MG/4 ML VIAL IV ONE ×2 (03:30→04:30)
[2019-01-07 03:41] LABS: BASOPHILS # (AUTO) 0.1 /CMM (0.0-0.2); BASOPHILS % (AUTO) 0.5 % (0.0-2.0); EOSINOPHILS % (AUTO) 0.4 % (0.0-6.0); HEMATOCRIT 28 % (33-45); HEMOGLOBIN 9.4 g/dL (11.5-14.8); LYMPHOCYTES # (AUTO) 1.1 /CMM (0.8-4.8); MEAN CORPUSCULAR HGB CONC 33 g/dl (31.0-36.0); MEAN CORPUSCULAR VOLUME 91 fL (82-100); MONOCYTES # (AUTO) 0.3 /CMM (0.1-1.30); MONOCYTES % (AUTO) 2.1 % (2.0-12.0); NEUTROPHILS # (AUTO) 10.8 /CMM (1.8-8.9); PLATELET COUNT (AUTO) 273 /CMM (150-450); RED BLOOD CELL COUNT(AUTO) 3.12 MIL/uL (4.0-5.2); WHITE BLOOD COUNT (AUTO) 12.2 K/uL (4.3-11.0)
[2019-01-07] MEDS ORDERED: FUROSEMIDE 40 MG/4 ML VIAL ONE ×2 (03:44→04:40)
[2019-01-07] MEDS ORDERED: NITROGLYCERIN PACKET 1 GM PACKET ONE (03:44)
[2019-01-07] MEDS ORDERED: ASPIRIN 81 MG TAB.CHEW ONE (03:45)
[2019-01-07 04:03] LABS: ALANINE AMINOTRANSFERASE 34 U/L (12-78); ALBUMIN 3.8 g/dL (3.4-5.0); ALKALINE PHOSPHATASE 105 U/L (46-116); ASPARTATE AMINOTRANSFERASE 19 U/L (15-37); B-TYPE NATRIURETIC PEPTIDE 27596 PG/ML (0-125); BILIRUBIN,DIRECT 0.1 mg/dL (0.0-0.2); BILIRUBIN,TOTAL 0.6 mg/dL (0.2-1.0); CALCIUM, SERUM 10.2 mg/dL (8.5-10.1); CARBON DIOXIDE 23 mmol/L (21-32); CHLORIDE 101 mmol/L (98-107); GLUCOSE 116 mg/dL (74-106); SODIUM SERUM 139 mmol/L (136-145); TOTAL PROTEIN, SERUM 7.9 g/dL (6.4-8.2)
[2019-01-07 04:04] LABS: D-DIMER 0.37 mg/L(FEU (0.17-0.50)
[2019-01-07] MEDS ORDERED: ALBUTEROL FS 2.5 MG/3 ML VIAL.NEB ONE (04:05)
[2019-01-07] MEDS ORDERED: IPRATROPIUM NEB FS 0.5 MG/2.5 ML AMPUL.NEB ONE (04:05)
[2019-01-07 04:06] LABS: CREATININE 9.7 mg/dL (0.6-1.3); MAGNESIUM 1.8 mg/dL (1.8-2.4); PHOSPHORUS 4.7 mg/dL (2.5-4.9); POTASSIUM 6.6 mmol/L (3.5-5.1); UREA NITROGEN, BLOOD 97 mg/dL (7-18)
[2019-01-07] MEDS ORDERED: NITROGLYCERIN 0.4 MG/TAB BOTTLE ONE (04:33)
[2019-01-07] MEDS: NITROGLYCERIN 0.4 MG/TAB BOTTLE SL PRN ×2 (04:35→05:00)
--- NOTE | 2019-01-07 04:35 | NUR ---
PER VERBAL MD ORDER, WILL ADMINISTERD NITRO SL X1 NOW. BP 177/100 HR 114
[2019-01-07 04:46] LABS: ABG BASE EXCESS -4.8 mmol/L; ABG OXYGEN SATURATION 89.7 % (92.0-98.5); ABG PCO2 29.5 mmHg (35.0-45.0); ABG PH 7.421 (7.350-7.450); ABG PO2 61.2 mmHg (75.0-100.0); AaDO2 53.2 mmHg; COHb 0.7 % (0.5-1.5); MetHb 0.3 % (0.0-1.5); O2Hb 88.8 % (94.0-97.0); SITE, ABG Right Brachial; VENT MODE, BG ROOM AIR
--- NOTE | 2019-01-07 04:51 | NUR ---
Anabell rodriguez in [facility] - 01/07/19 at 0453 by BRUNA [id number]
[2019-01-07] MEDS ORDERED: MAGNESIUM HYDROXIDE 30 ML UDC PO PRN (05:00)
[2019-01-07] MEDS ORDERED: MAG HYDROX/AL HYDROX/SIMETH 30 ML UDC PO PRN (05:00)
[2019-01-07] MEDS ORDERED: IPRATROPIUM NEB FS 0.5 MG/2.5 ML AMPUL.NEB NEB PRN (05:00)
[2019-01-07] MEDS ORDERED: ZOLPIDEM TARTRATE 5 MG TABLET PO PRN ×2 (05:00→22:00)
[2019-01-07] MEDS ORDERED: HYDROCODONE/APAP 5/325MG 1 EACH TABLET PO PRN (05:00)
[2019-01-07] MEDS ORDERED: Z GUARD REMEDY 2 OZ OINT TP PRN (05:00)
[2019-01-07] MEDS ORDERED: ALBUTEROL FS 2.5 MG/0.5 ML VIAL.NEB NEB PRN (05:00)
--- NOTE | 2019-01-07 05:00 | NUR ---
BP: 160/[address] VALADEZ TO GIVE A SECOND DOSE OF NITRO SL. PT MEDICATED ORDERED
--- NOTE | 2019-01-07 05:12 | NUR ---
PT / ERNIE DOES NOT RECALL THE LIST OF HOME MEDS. THEY WILL UPDATE US WITH THE LIST IN AM.
--- NOTE | 2019-01-07 05:22 | NUR ---
REPORT GIVEN TO CATALINA ON THIRD FLOOR
--- NOTE | 2019-01-07 05:50 | NUR ---
pt was transferred to 101 under acls
[2019-01-07 05:54] VITALS: BP 160/89
--- NOTE | 2019-01-07 05:54 | NUR ---
SURVEY CREW CHIEF NOTES RECEIVED PT ON BED. A/O X 4, ON NASAL CANNULA 2LPM NO RESPIRATORY DISTRESS NOTED. BELONGING LIST DONE. PHYSICAL ASSESSMENT DONE.
[2019-01-07] MEDS: ACETAMINOPHEN 325 MG TABLET PO PRN (06:51)
--- NOTE | 2019-01-07 07:10 | NUR ---
RN OPENING NOTES PT IS AWAKE AND PACING ROOM. PT STATES SHE IS NOT HAVING ANY PAIN BUT DOES HAVE SOB. PT WAS INSTRUCTED TO LAY IN BED. PT STATED SHE FELT BETTER AFTER LAYING IN BED. IN HIGH BURT POSITION. PT IS ON TELE MONITOR PT IS SR 93. BED IS LOCKED AND IN LOWEST POSITION WITH CALL LIGHT IN REACH WILL CONTINUE TO MONITOR.
[2019-01-07 08:00] VITALS: BP 135/91
[2019-01-07] MEDS ORDERED: NITROGLYCERIN 0.4 MG/TAB BOTTLE SL PRN (10:00)
[2019-01-07] MEDS ORDERED: ALBUTEROL FS 2.5 MG/3 ML VIAL.NEB NEB PRN (10:00)
[2019-01-07] MEDS: AMLODIPINE BESYLATE 10 MG TABLET PO PRN (11:24)
--- NOTE | 2019-01-07 11:29 | NUR ---
PT RECEIVED DIALYSIS TODAY 4L OUTPUT.
[2019-01-07 12:00] VITALS: BP 169/110
[2019-01-07] MEDS: CALCIUM ACETATE 667 MG TABLET PO SCH ×2 (13:09→17:11)
[2019-01-07 16:00] VITALS: BP 156/88
[2019-01-07] MEDS: ATORVASTATIN 40 MG TABLET PO SCH (17:11)
[2019-01-07] MEDS: PANTOPRAZOLE 40 MG TABLET.DR PO SCH (17:11)
[2019-01-07] MEDS: CARVEDILOL 6.25 MG TABLET PO SCH (17:12)
[2019-01-07] MEDS: ONDANSETRON HCL/PF 4 MG/2 ML VIAL IVP PRN (18:03)
--- NOTE | 2019-01-07 18:18 | NUR ---
PT REMOVED SCD STATES THEY WERE HURTING HER LEGS.
--- NOTE | 2019-01-07 19:16 | NUR ---
REPORT GIVEN TO TRIMMING CUTTER RN FOR LAMIN.
--- NOTE | 2019-01-07 19:30 | NUR ---
NORMALIZER OPENING NOTES RECEIVED PATIENT A/OX4 WITH NO SIGNS OF ANY DISTRESS. PATIENT WAS PRESENTED ON ROOM AIR WITH NO SIGN OF ANY SOB BUT HAS NC AT BEDSIDE IF NEEDED. PATIENT IS ON THE MONITOR WITH NSR AT REST WITH HR AT 96 BUT TACHY WHEN AMBULATORY. PATIENT HAS A RIGHT HAND #20G S/L AND PERM CATH ON THE RIGHT CHEST WALL. ALL SAFETY PRECAUTIONS HAVE BEEN APPLIED. WILL CONTINUE TO MONITOR PATIENT.
[2019-01-07 20:00] VITALS: BP_SYST 126; BP_SYST 161; BP_DIAS 58; BP_DIAS 72
[2019-01-08] VITALS (8 sets, daily range): BP systolic 141–165; BP diastolic 75–101
[2019-01-08 06:41] LABS: CALCIUM, SERUM 8.5 mg/dL (8.5-10.1); PHOSPHORUS 6.4 mg/dL (2.5-4.9); POTASSIUM 5.1 mmol/L (3.5-5.1)
[2019-01-08 06:43] LABS: CREATININE 8.2 mg/dL (0.6-1.3)
[2019-01-08 06:44] LABS: THYROID STIMULATING HORMONE 2.245 uIU/mL (0.358-3.74)
[2019-01-08 06:50] LABS: BASOPHILS % (AUTO) 0.2 % (0.0-2.0); EOSINOPHILS % (AUTO) 1.6 % (0.0-6.0); HEMATOCRIT 25 % (33-45); HEMOGLOBIN 8.3 g/dL (11.5-14.8); LYMPHOCYTES # (AUTO) 1.5 /CMM (0.8-4.8); LYMPHOCYTES % (AUTO) 24.7 % (20.0-44.0); MEAN CORPUSCULAR HGB CONC 34 g/dl (31.0-36.0); MEAN CORPUSCULAR VOLUME 91 fL (82-100); MONOCYTES # (AUTO) 0.5 /CMM (0.1-1.30); NEUTROPHILS # (AUTO) 3.9 /CMM (1.8-8.9); NEUTROPHILS % (AUTO) 64.5 % (43.0-81.0); PLATELET COUNT (AUTO) 252 /CMM (150-450); WHITE BLOOD COUNT (AUTO) 6.1 K/uL (4.3-11.0)
--- NOTE | 2019-01-08 07:32 | NUR ---
DATAPOWER CONSULTANT CLOSING NOTES PATIENT IN BED WITH NO SIGNS OF ANY DISTRESS. PATIENT IS ON NASAL CANNULA WITH 2L WITH O2 SAT @ 97% AND NO SIGNS OF ANY SOB. PATIENT AT THE MOMENT IS ON DIALYSIS. ALL SAFETY PRECAUTIONS ARE APPLIED. HAVE ENDORSED PATIENT TO MORNING SHIFT NURSE.
--- NOTE | 2019-01-08 07:35 | NUR ---
RN MS NOTES PT IN BED, RESTING, NO COMPLAINT OF PAIN, NOT IN DISTRESS, DIALYSIS ONGOING, TOLERATING WELL, CALL LIGHT WITHIN REACH, NEEDS ATTENDED.
[2019-01-08] MEDS: VIT B CMPLX 3/FA/VIT C/BIOTIN 1 TAB TABLET PO SCH (09:53)
[2019-01-08] MEDS: FUROSEMIDE 40 MG TABLET PO SCH (09:53)
[2019-01-08] MEDS: CALCIUM ACETATE 667 MG TABLET PO SCH ×3 (09:53→17:38)
[2019-01-08] MEDS: PANTOPRAZOLE 40 MG TABLET.DR PO SCH ×2 (09:53→16:11)
[2019-01-08] MEDS: CARVEDILOL 6.25 MG TABLET PO SCH ×2 (09:54→16:12)
[2019-01-08] MEDS: predniSONE 5 MG TABLET PO SCH (09:57)
[2019-01-08] MEDS: ACETAMINOPHEN 325 MG TABLET PO PRN (12:05)
--- NOTE | 2019-01-08 13:20 | NUR ---
FOOD AND BEVERAGE COORDINATOR NOTES PT AWAKE, ALERT AND ORIENTED, ABLE TO WALK ALONG THE HALLWAY WITH STEADY GAIT, NO COMPLAINT AT THIS TIME, SEEN BY DR. WELCH, CALL LIGHT WITHIN REACH, NEEDS ATTENDED.
[2019-01-08] MEDS ORDERED: EPOETIN ALFA (10,000 UNIT) 10,000 UNIT/ML VIAL IV ONE (15:00)
[2019-01-08] MEDS: ATORVASTATIN 40 MG TABLET PO SCH (17:38)
[2019-01-08] MEDS: ONDANSETRON HCL/PF 4 MG/2 ML VIAL IVP PRN (17:41)
--- NOTE | 2019-01-08 18:09 | NUR ---
REPAIRER SWITCHGEAR NOTES PT IN BED, AWAKE, ALERT AND ORIENTED, NO COMPLAINT OF PAIN OR ANY DISTRESS, EATING DINNER, TOLERATING WELL, AMBULATES ALONG THE HALLWAY WITH STEADY GAIT, PM MEDS GIVEN, ALL NEEDS ATTENDED.
--- NOTE | 2019-01-08 19:25 | NUR ---
TELE/RN NOTES Patient received in bed, awake, A/O x4, in no acute distress, breathing even and unlabored. no SOB noted. Denies any pain or discomfort at this time, Patient on tele monitoring with Sinus rhythm. IV site with no S/S of infection infiltration. Safety maintained, bed at the lowest locked position. Call light within reach. Will continue to monitor as per plan of care.
[2019-01-08] MEDS: AMLODIPINE BESYLATE 10 MG TABLET PO PRN (21:26)
[2019-01-09] VITALS: BP 142/76
[2019-01-09 04:00] VITALS: BP 149/80
[2019-01-09 04:59] VITALS: BP 149/80
--- NOTE | 2019-01-09 06:51 | NUR ---
Labs called at this time to relay blood culture results shows gram positive cocci. Called Dr. Rdz at this time, relayed to Dr. Rdz with no new order, asked me to relay to AM doctors. Will endorse to AM Shift nurse.
--- NOTE | 2019-01-09 06:56 | NUR ---
TELE/RN NOTES Patient remained in bed, sleeping comfortably at this time, easily abusable. in no acute distress, breathing even and unlabored. no SOB noted. Denies any pain or discomfort at this time, Patient on tele monitoring with Sinus rhythm. IV site with no S/S of infection infiltration. Safety maintained, bed at the lowest locked position. Call light within reach. Will endorse to AM shift nurse for LAMIN.
--- NOTE | 2019-01-09 07:00 | NUR ---
SHOP TAILOR NOTES OPENING PATIENT ALERT AND ORIENTED X4. AWAKE AND COOPERATIVE. PATIENT IS CURRENTLY ON 2L OXYGEN AND SATURATING WELL. PATIENT IS ON TELE MONITOR WITH SR . SHOWS NO SIGNS OF DISTRESS. NO PATIENT DENIES PAIN AT THIS TIME PATIENT IS AMBULATORY AND SKIN IS IN TACT. PATIENT HAS L HAND 20 G CLEAN DRY, INTACT, FLUSHING. PATIENT IS AWAKE OF TREATMENT AND CARE PLAN. PATIENT IS AMBULATORY.BED LOWEST AND LOCKED POSITION , SAFETY MAINTAINED , CALL LIGHT WITH IN REACH
[2019-01-09] MEDS: ONDANSETRON HCL/PF 4 MG/2 ML VIAL IVP PRN (07:48)
[2019-01-09 08:00] VITALS: BP_SYST 143; BP_SYST 163; BP_DIAS 49; BP_DIAS 89
--- NOTE | 2019-01-09 08:28 | NUR ---
DIAMOND GRINDER NOTES PATIENT CURRENTLY RECEIVING HD -
[2019-01-09] MEDS: PANTOPRAZOLE 40 MG TABLET.DR PO SCH (08:39)
[2019-01-09] MEDS: VIT B CMPLX 3/FA/VIT C/BIOTIN 1 TAB TABLET PO SCH (08:39)
[2019-01-09] MEDS: CALCIUM ACETATE 667 MG TABLET PO SCH (08:39)
[2019-01-09] MEDS: predniSONE 5 MG TABLET PO SCH (08:39)
[2019-01-09] MEDS: FUROSEMIDE 40 MG TABLET PO SCH (08:40)
[2019-01-09] MEDS: CARVEDILOL 6.25 MG TABLET PO SCH (08:40)
--- NOTE | 2019-01-09 08:41 | NUR ---
NEUROLOGY DIRECTOR NOTES PATIENT WAS NOT GIVEN FUROSEMOIDE/ AND CARVEDILOL PATIENT CURRENTLY HAVING HD
--- NOTE | 2019-01-09 11:53 | NUR ---
MOBILE APPLICATION DEVELOPER NOTES PATIENT REFUSED UA
[2019-01-09 12:00] VITALS: BP_SYST 143; BP_SYST 144; BP_DIAS 45; BP_DIAS 94
--- NOTE | 2019-01-09 13:52 | NUR ---
FITNESS COACH CLOSING NOTES PATIENT IS AWAKE A/O X4, PATIENT IS CURRENTLY ON ROOM AIR TOLERATING WELL. PATIENT SHOWS NO SIGNS OF RESPIRATORY DISTRESS. PATIENT SKIN IS INTACT. PATIENT IS AWARE OF DISCHARGE AND UNDERSTANDS THE THE DISCHARGE INSTRUCTIONS.
[2019-01-09 16:00] VITALS: BP 143/45
== END 2019-01-09 13:36 | disposition home or self-care (01) | DRG 189 ==
LOC: ER 03:18 → TELE 04:40 → TELE1 05:06
PROC: 5A1D70Z Performance of Urinary Filtration, Intermittent, Less than 6 Hours Per Day (ICD-10-PCS; principal; 2019-01-07)
DX: J96.01 Acute respiratory failure with hypoxia (principal); N18.6 End stage renal disease; I13.2 Hypertensive heart and chronic kidney disease with heart failure and with stage 5 chronic kidney disease, or end stage renal disease; M31.0 Hypersensitivity angiitis; I50.32 Chronic diastolic (congestive) heart failure; Z99.2 Dependence on renal dialysis; D63.8 Anemia in other chronic diseases classified elsewhere; E83.52 Hypercalcemia; E78.5 Hyperlipidemia, unspecified; E87.5 Hyperkalemia; D72.829 Elevated white blood cell count, unspecified; F41.9 Anxiety disorder, unspecified
CPT/HCPCS: 36415; 36600; 71045-TC; 80048-TC; 80061-TC; 80076-TC; 82803-TC; 83735-TC; 83880; 84100-TC; 84443-TC; 84484-TC; 85025-TC; 85378-TC; 85730-TC; 87040-TC; 87081-TC; 90935-TC; 93307-TC; G0378; J0885; J1940; J2405; J7512

== ENCOUNTER 2019-04-14 19:07 | Inpatient (IN) | payer MEDICARE, OTHER ==
[~2019-04-14] VITALS: Ht 154.9 cm; Wt 79.4 kg
[~2019-04-14 19:07] MED LIST changes: -ONDA4TAB10 PO
--- NOTE | 2019-04-14 19:17 | NUR ---
PT BIB RA TO BED 8 C/O SOB. PATIENT APPEARS ANXIOUS AND PANICKY. PT'S BROTHER STATES THAT PT USUALLY IS ANXIOUS THE NIGHT BEFORE DIALYSIS. PT RECEIVES DIALYSIS ON SUNDAY, SUNDAY, AND SUNDAY. PT IS AAOX4. PT IS PLACED ON NON REBREATHER 15L. CONNECTED TO DIMENSION STONE QUARRY SUPERVISOR.
--- NOTE | 2019-04-14 19:22 | NUR ---
BLOOD DRAWN AND SENT TO LAB
[2019-04-14 19:27] LABS: BASOPHILS # (AUTO) 0.1 /CMM (0.0-0.2); BASOPHILS % (AUTO) 0.9 % (0.0-2.0); EOSINOPHILS % (AUTO) 0.9 % (0.0-6.0); HEMATOCRIT 35 % (33-45); HEMOGLOBIN 11.3 g/dL (11.5-14.8); MEAN CORPUSCULAR HGB CONC 32 g/dl (31.0-36.0); MEAN CORPUSCULAR VOLUME 88 fL (82-100); MONOCYTES # (AUTO) 0.7 /CMM (0.1-1.30); MONOCYTES % (AUTO) 6.3 % (2.0-12.0); NEUTROPHILS # (AUTO) 8.1 /CMM (1.8-8.9); NEUTROPHILS % (AUTO) 73.9 % (43.0-81.0); PLATELET COUNT (AUTO) 402 /CMM (150-450); RED BLOOD CELL COUNT(AUTO) 3.96 MIL/uL (4.0-5.2); WHITE BLOOD COUNT (AUTO) 10.9 K/uL (4.3-11.0)
[2019-04-14] MEDS ORDERED: LORAZEPAM INJ 2 MG/ML VIAL IV ONE (19:30)
[2019-04-14] MEDS ORDERED: FUROSEMIDE 40 MG/4 ML VIAL IV ONE (19:30)
--- NOTE | 2019-04-14 19:32 | NUR ---
RT AT BEDSIDE FOR BIPAP
--- NOTE | 2019-04-14 19:40 | NUR ---
XRAY AT BEDSIDE
--- NOTE | 2019-04-14 19:43 | NUR ---
PT PLACED ON BIPAP PER DR WASHINGTON. 15/, 10, 50%. ABG IN 30 MINUTES. RN YAYA NOTIFIED.
--- NOTE | 2019-04-14 19:44 | NUR ---
15/5, 10, FI02 50%, BIPAP SETTING.
[2019-04-14 19:49] LABS: ALBUMIN 3.3 g/dL (3.4-5.0); BILIRUBIN,DIRECT 0.1 mg/dL (0.0-0.2); BILIRUBIN,TOTAL 0.3 mg/dL (0.2-1.0); CALCIUM, SERUM 9.5 mg/dL (8.5-10.1); POTASSIUM 4.2 mmol/L (3.5-5.1); TOTAL PROTEIN, SERUM 7.8 g/dL (6.4-8.2)
[2019-04-14 19:50] LABS: CREATININE 8.9 mg/dL (0.6-1.3)
[2019-04-14] MEDS ORDERED: FUROSEMIDE 40 MG/4 ML VIAL ONE (20:15)
[2019-04-14] MEDS ORDERED: LORAZEPAM INJ 2 MG/ML VIAL ONE (20:16)
--- NOTE | 2019-04-14 20:27 | NUR ---
ICU 257
--- NOTE | 2019-04-14 20:50 | NUR ---
report given to Chika WRIGHT at ICU for LAMIN.
[2019-04-14 20:52] LABS: ABG BASE EXCESS -10.6 mmol/L; ABG OXYGEN SATURATION 99.2 % (92.0-98.5); ABG PCO2 30.1 mmHg (35.0-45.0); ABG PH 7.302 (7.350-7.450); ABG PO2 180.5 mmHg (75.0-100.0); AaDO2 142.1 mmHg; COHb 1.7 % (0.5-1.5); MetHb 0.3 % (0.0-1.5); O2Hb 97.2 % (94.0-97.0); SITE, ABG Right Radial
--- NOTE | 2019-04-14 21:03 | NUR ---
CALLED [facility]. BUTT TRIMMER WAS PAGED.
--- NOTE | 2019-04-14 21:20 | NUR ---
ER MD SPOKE TO DR. BONNER REGARDING PT ADMISSION.
--- NOTE | 2019-04-14 21:29 | NUR ---
PT TRANSFERRED TO ICU. CONTINUE PT ON BIPAP.
--- NOTE | 2019-04-14 21:30 | NUR ---
DRAPERY INSTALLERSANDER AND POLISHER NOTES, RECEIVED PATIENT FROM ER ON NATALIRNEY, A/OX4. PATIENT APPEARS ANXIOUS. ON TELE MONITOR HR AND BP ARE HIGH. PATIENT RECEIVES DIALYSIS ON SUN. , AND FRIDAYS. PATIENT WAS PUT ON BIPAB BY RT TECH, TOLERATING WELL, NO SOB OR ACUTE DISTRESS NOTED. IV ON LH #20 AND LAC #18 SL. PATENT AND FLUSHING WELL. NO INFILTRATION NOTED. PATIENT HAS RIGHT INTERNAL JUGULAR VAC CATH. FATHER AT BED SIDE. BED IN LOW/ LOCKED POSITION. CALL LIGHT WITHIN REACH. WILL CONTINUE TO MONITOR THE PATIENT CLOSELY. PT BIB RA TO BED 8 C/O SOB. PATIENT APPEARS ANXIOUS AND PANICKY. PT'S BROTHER STATES THAT PT USUALLY IS ANXIOUS THE NIGHT BEFORE DIALYSIS. PT RECEIVES DIALYSIS ON SUNDAY, SUNDAY, AND SUNDAY. PT IS AAOX4. PT IS PLACED ON NON REBREATHER 15L. CONNECTED TO DIRECTOR OF GIFT PLANNING.
--- NOTE | 2019-04-14 21:45 | NUR ---
RN NOTES, PATIENT WAS ORDERED FOR STAT HEMODIALYSIS BY DR BONNER. FATHER AT BED SIDE, CONSENT FORM SIGNED.
[2019-04-14] MEDS ORDERED: Z GUARD REMEDY 2 OZ OINT TP PRN (22:00)
[2019-04-14] MEDS ORDERED: MORPHINE SULFATE INJ 2 MG/ML DISP.SYRIN IV PRN (22:00)
[2019-04-14] MEDS ORDERED: MAG HYDROX/AL HYDROX/SIMETH 30 ML UDC PO PRN (22:00)
[2019-04-14] MEDS ORDERED: ZOLPIDEM TARTRATE 5 MG TABLET PO PRN (22:00)
[2019-04-14] MEDS ORDERED: MAGNESIUM HYDROXIDE 30 ML UDC PO PRN (22:00)
[2019-04-14 22:30] VITALS: BP 192/97
[2019-04-14 23:00] VITALS: BP 162/133
[2019-04-14 23:15] VITALS: BP 174/155
[2019-04-14 23:30] VITALS: BP 138/43
[2019-04-14 23:45] VITALS: BP 194/128
[2019-04-15] VITALS (44 sets, daily range): BP systolic 86–212; BP diastolic 24–151
[2019-04-15] MEDS ORDERED: hydrALAZINE HCL IV 20 MG VIAL IV PRN
--- NOTE | 2019-04-15 | NUR ---
RN NOTES, PATIENT REQUESTED XANAX FOE ANXIETY, FINANCIAL INVESTIGATOR MD NOTIFIED AND XANAX 0.25 MG Q8H PRN WAS ORDERED. WILL CONTINUE TO MONITOR.
[2019-04-15] MEDS ORDERED: ALPRAZOLAM 0.25 MG TABLET PO PRN (00:30)
[2019-04-15] MEDS: ACETAMINOPHEN 325 MG TABLET PO PRN ×3 (00:36→21:51)
--- NOTE | 2019-04-15 02:00 | NUR ---
RN NOTES, PATIENT'S BP 179/125 AND HR 109+. PRINT BUYER MD NOTIFIED, LABETALOL 100MG PO BID WAS ORDERED. WILL MONITOR THE PATIENT CLOSELY.
[2019-04-15] MEDS: LABETALOL HCL (100MG) 100 MG TABLET PO SCH ×3 (02:32→20:45)
[2019-04-15] MEDS ORDERED: LORAZEPAM INJ 2 MG/ML VIAL IV PRN (04:00)
[2019-04-15] MEDS ORDERED: ASPIRIN 325 MG TABLET PO SCH (04:00)
--- NOTE | 2019-04-15 04:05 | NUR ---
RN NOTES, PATIENTS TROPONIN 0312, PREVIOUSLY 0.074. NOTIFIED MD SALES COMPENSATION ANALYST., NEW ORDERS FOR ASPIRIN 325, REPEAT TROP AT 0900, ECHO. PATIENT REMAINS ANXIOUS, DESPITE XANAX, RECEIVED NEW ORDER FOR ATIVAN 1MG IV Q8 PRN. WILL CONTINUE TO MONITOR.
[2019-04-15 04:39] LABS: BASOPHILS % (AUTO) 0.2 % (0.0-2.0); EOSINOPHILS % (AUTO) 0.8 % (0.0-6.0); HEMATOCRIT 31 % (33-45); HEMOGLOBIN 10.1 g/dL (11.5-14.8); LYMPHOCYTES # (AUTO) 0.9 /CMM (0.8-4.8); MEAN CORPUSCULAR HGB CONC 33 g/dl (31.0-36.0); MEAN CORPUSCULAR VOLUME 87 fL (82-100); MONOCYTES # (AUTO) 0.7 /CMM (0.1-1.30); MONOCYTES % (AUTO) 7.5 % (2.0-12.0); NEUTROPHILS # (AUTO) 7.2 /CMM (1.8-8.9); NEUTROPHILS % (AUTO) 81.5 % (43.0-81.0); PLATELET COUNT (AUTO) 331 /CMM (150-450); RED BLOOD CELL COUNT(AUTO) 3.51 MIL/uL (4.0-5.2); WHITE BLOOD COUNT (AUTO) 8.8 K/uL (4.3-11.0)
[2019-04-15 04:51] LABS: CALCIUM, SERUM 9.4 mg/dL (8.5-10.1); CREATININE 6.4 mg/dL (0.6-1.3); MAGNESIUM 2.1 mg/dL (1.8-2.4); PHOSPHORUS 6.5 mg/dL (2.5-4.9); POTASSIUM 3.5 mmol/L (3.5-5.1)
--- NOTE | 2019-04-15 07:30 | NUR ---
ARCADE ATTENDANT OPENING NOTES RECEIVED REPORT FROM PM NURSE.PATIENT IN BED SLEEPING.EASILY AWAKE. A/OX4.GETTING EASILY ANXIOUS. ON TELE MONITOR SR. PATIENT ON 4L O2 TOLERATING WELL. NO SOB AND ACUTE DIASTERS NOTED AT THIS TIME. IV ON LH #20 . PATENT AND FLUSHING WELL. NO INFILTRATION NOTED. PATIENT HAS RIGHT INTERNAL JUGULAR HD CATH. BED IN LOW/ LOCKED POSITION. CALL LIGHT WITHIN REACH. BED ALARM ON.SRX3.WILL CONTINUE TO MONITOR.
--- NOTE | 2019-04-15 07:31 | NUR ---
TITLE I MATH TUTOR CLOSING NOTES, PATIENT IN BED SLEEPING, A/OX4. ON TELE MONITOR HR AND BP HAS BEEN VARIED OVER THE BORING INSPECTOR. BP IS WNL NOW 152/77 HR 85. HD SCHEDULED SUN, , AND SATURDAYS. PATIENT ON 4L O2 TOLERATING WELL. NO SOB AND ACUTE DIASTERS NOTED AT THIS TIME. IV ON LH #20 AND LAC #18 SL. PATENT AND FLUSHING WELL. NO INFILTRATION NOTED. PATIENT HAS RIGHT INTERNAL JUGULAR VAC CATH. BED IN LOW/ LOCKED POSITION. CALL LIGHT WITHIN REACH. ENDORSED THE PATIENT TO AM RN FOR LAMIN.
[2019-04-15 08:16] LABS: ABG BASE EXCESS -1.2 mmol/L; ABG OXYGEN SATURATION 98.7 % (92.0-98.5); ABG PCO2 34.2 mmHg (35.0-45.0); ABG PH 7.438 (7.350-7.450); ABG PO2 120.2 mmHg (75.0-100.0); AaDO2 111.2 mmHg; COHb 2.3 % (0.5-1.5); MetHb 0.2 % (0.0-1.5); O2Hb 96.2 % (94.0-97.0); SITE, ABG Right Radial; VENT MODE, BG 4L N/C
[2019-04-15] MEDS ORDERED: DICY10CA13 PO (09:26)
[2019-04-15] MEDS ORDERED: PANT40TA2 PO (09:26)
[2019-04-15] MEDS ORDERED: LOSA100T31 PO (09:26)
[2019-04-15] MEDS ORDERED: PRED5TAB PO (09:26)
[2019-04-15] MEDS ORDERED: ATOR40TA PO (09:26)
[2019-04-15] MEDS ORDERED: FURO40TA5 PO (09:26)
[2019-04-15] MEDS ORDERED: CARV6.252 PO (09:26)
[2019-04-15] MEDS ORDERED: FOLI0.8T23 PO (09:26)
[2019-04-15] MEDS ORDERED: ALBU8.5H8 IH (09:26)
[2019-04-15] MEDS ORDERED: NITR0.4T48 PO (09:26)
[2019-04-15] MEDS ORDERED: CALC667C6 PO (09:26)
[2019-04-15] MEDS: NITROGLYCERIN 30 GM TUBE TP SCH ×2 (09:36→20:50)
[2019-04-15] MEDS: HEPARIN SODIUM, PORCINE 5000 UNITS/1 ML VIAL SQ SCH ×2 (09:38→20:46)
--- NOTE | 2019-04-15 10:00 | NUR ---
RECRUITING OPERATIONS CONSULTANT NOTE PATIENT PLACED ON 2L NASAL CANULA AFTER ABG RESULT.WILL CONTINUE TO MONITOR.
[2019-04-15] MEDS: ONDANSETRON HCL/PF 4 MG/2 ML VIAL IVP PRN ×2 (12:10→12:14)
--- NOTE | 2019-04-15 12:17 | NUR ---
VOCATIONAL REHABILITATION COUNSELOR NOTE PATIENT REQUESTED PRN NAUSEA MEDS.PATIENT REFUSED IV ZOFRAN. MADE AWARE.CHANGED TO ZOFRAN PRN. WHILE FLUSHING IV SHE C/O PAIN.REQUESTED INSERT NEW IV LINE.PATIENT REFUSED.
[2019-04-15] MEDS: ONDANSETRON 4 MG TAB.RAPDIS PO PRN (12:36)
[2019-04-15] MEDS: HYDROCODONE/APAP 5/325MG 1 EACH TABLET PO PRN (15:04)
--- NOTE | 2019-04-15 15:07 | NUR ---
BOX BLANK MACHINE OPERATOR HELPER NOTE PATIENT'S BP IS 183/107.ON GOING HD.PATIENT REFUSED HYDRALAZINE.PRN NORCO GIVEN FOR PAIN.WILL CONTINUE TO MONITOR.
--- NOTE | 2019-04-15 15:37 | NUR ---
INFLATED PAD BUFFER NOTE REPORT GIVEN TO TIFFANY RN IN TELE .PATIENT WILL BE TRANSFERRING TO [facility] AFTER DIALYSIS.
--- NOTE | 2019-04-15 18:15 | NUR ---
SECURITY SITE SUPERVISOR PT TRANSFERRED TO 1ST FLOOR BY EVELYN WITH MONITOR. PT COMPLETED DIALYSIS. TOLERATED WELL. NO DYSPNEA SEEN.
--- NOTE | 2019-04-15 18:15 | NUR ---
DELIVERY ANALYST NOTE PATIENT TRANSFERRED TO TELE WITH ACLS PROTOCOL BY CHARGE NURSE.WAS TAKING CARE OF THE PATIENT SINCE 1629.PATIENT AXO.
[2019-04-15] MEDS ORDERED: DICYCLOMINE HCL 10 MG CAPSULE PO PRN (19:00)
--- NOTE | 2019-04-15 19:27 | NUR ---
RN CLOSING NOTES PATIENT IS RESTING IN BED COMFORTABLY. SHE IS ON 2L OF O2, VIA NC, TOLERATING WELL, NO SOB OR RESP DISTRESS. PT NEEDS HAVE BEEN MET, VITAL SIGNS ARE STABLE, NO ACUTE CHANGES OCCURRED THROUGHOUT THE SHIFT. SAFETY MEASURES HAVE BEEN IMPLEMENTED, CALL LIGHT IS WITHIN REACH, BED IS IN LOWEST AND LOCKED POSITION, SIDE RAILS UP X2, PT HAS BEEN ENDORSED TO NIGHTSHIFT RN FOR LAMIN.
[2019-04-15] MEDS ORDERED: ALBUTEROL FS 2.5 MG/3 ML VIAL.NEB NEB PRN (19:30)
--- NOTE | 2019-04-15 23:00 | NUR ---
DISPATCHER MOTOR VEHICLE: REASSESSED AFTER GIVEN TYLENOL FOR HEADACHE WT GOOD EFFECT. NO C/O PAIN AT THIS TIME. WILL CONTINUE TO MONITOR.
[2019-04-16] VITALS (8 sets, daily range): BP systolic 134–179; BP diastolic 77–100
[2019-04-16] MEDS: HYDROCODONE/APAP 5/325MG 1 EACH TABLET PO PRN (03:03)
--- NOTE | 2019-04-16 04:00 | NUR ---
ELECTRONIC REPAIR TROUBLESHOOTER: REASSESSED AFTER GIVEN NORCO WT GOOD EFFECT. PT EYES CLOSED, NO ACUTE DISTRESS, NO EVIDENCE OF DISCOMFORT. WILL CONTINUE TO MONITOR.
--- NOTE | 2019-04-16 06:15 | NUR ---
ENROLLMENT CONSULTANT: NO SIGNIFICANT LAMIN DURING THE SHIFT. REMAINED A/O X 3, NO ACUTE DISTRESS, ON 2L TO R/A WT 02 SAT 94% AND ABOVE. PAIN MEDS GIVEN FOR HEADACHE WT GOOD EFFECT. MOSTLY SR (AND SB WHEN ASLEEP) ON TELE MONITOR. AFEBRILE. HOB AT 30 DEGREES, BED IN LOWEST POSITION AND LOCKED, BED ALARM ON, SIDE RAILS UP X3, CALL LIGHT KEPT WITHIN REACH.
--- NOTE | 2019-04-16 07:00 | NUR ---
RN MS1 OPENING PATIENT IS RESTING IN BED COMFORTABLY. SHE IS ON 2L OF O2, VIA NC, TOLERATING WELL, NO SOB OR RESP DISTRESS. PT NEEDS HAVE BEEN MET, VITAL SIGNS ARE STABLE, NO ACUTE CHANGES OCCURRED THROUGHOUT THE SHIFT. SAFETY MEASURES HAVE BEEN IMPLEMENTED, CALL LIGHT IS WITHIN REACH, BED IS IN LOWEST AND LOCKED POSITION, SIDE RAILS UP X2, PT HAS BEEN ENDORSED TO NIGHTSHIFT RN FOR LAMIN.
[2019-04-16 07:11] LABS: BASOPHILS % (AUTO) 0.3 % (0.0-2.0); EOSINOPHILS % (AUTO) 2.1 % (0.0-6.0); HEMATOCRIT 32 % (33-45); HEMOGLOBIN 10.5 g/dL (11.5-14.8); LYMPHOCYTES # (AUTO) 1.2 /CMM (0.8-4.8); LYMPHOCYTES % (AUTO) 21.4 % (20.0-44.0); MEAN CORPUSCULAR HGB CONC 33 g/dl (31.0-36.0); MEAN CORPUSCULAR VOLUME 87 fL (82-100); MONOCYTES # (AUTO) 0.8 /CMM (0.1-1.30); MONOCYTES % (AUTO) 13.4 % (2.0-12.0); NEUTROPHILS # (AUTO) 3.6 /CMM (1.8-8.9); NEUTROPHILS % (AUTO) 62.8 % (43.0-81.0); PLATELET COUNT (AUTO) 302 /CMM (150-450); RED BLOOD CELL COUNT(AUTO) 3.68 MIL/uL (4.0-5.2); WHITE BLOOD COUNT (AUTO) 5.7 K/uL (4.3-11.0)
[2019-04-16 07:44] LABS: ALBUMIN 2.8 g/dL (3.4-5.0); BILIRUBIN,TOTAL 0.6 mg/dL (0.2-1.0); CALCIUM, SERUM 9.2 mg/dL (8.5-10.1); CREATININE 6.8 mg/dL (0.6-1.3); PHOSPHORUS 7.8 mg/dL (2.5-4.9); POTASSIUM 4.5 mmol/L (3.5-5.1); TOTAL PROTEIN, SERUM 6.9 g/dL (6.4-8.2)
[2019-04-16] MEDS ORDERED: CARVEDILOL 6.25 MG TABLET PO SCH (09:00)
--- NOTE | 2019-04-16 10:20 | NUR ---
WOUND CARE CONSULT: PT PRESENTS AMBULATORY AND CONTINENT WITH CALLUSED HEELS WHICH ARE NONTENDER, PRESENT ON ADMISSION. WILL SEE PRN. CURRENT RIO SCORE IS 19.
[2019-04-16] MEDS: VITAMIN B COMP W-C 1 TAB TABLET PO SCH (10:26)
[2019-04-16] MEDS: predniSONE 5 MG TABLET PO SCH (10:26)
[2019-04-16] MEDS: NITROGLYCERIN 30 GM TUBE TP SCH ×2 (10:26→20:43)
[2019-04-16] MEDS: LOSARTAN POTASSIUM 50 MG TABLET PO SCH (10:27)
[2019-04-16] MEDS: CALCIUM ACETATE 667 MG TABLET PO SCH ×3 (10:27→18:09)
[2019-04-16] MEDS: ISOSORBIDE MONONITRATE (30MG) 30 MG TAB.SR.24H PO SCH (10:28)
[2019-04-16] MEDS: LABETALOL HCL (100MG) 100 MG TABLET PO SCH ×2 (10:28→20:43)
[2019-04-16] MEDS: HEPARIN SODIUM, PORCINE 5000 UNITS/1 ML VIAL SQ SCH ×2 (10:30→20:44)
[2019-04-16] MEDS: ONDANSETRON 4 MG TAB.RAPDIS PO PRN ×2 (15:56→23:06)
[2019-04-16] MEDS: ATORVASTATIN 40 MG TABLET PO SCH (18:09)
--- NOTE | 2019-04-16 19:34 | NUR ---
RN MS1 NOTES - CLOSING PATIENT IS RESTING IN BED COMFORTABLY. SHE IS ON 2L OF O2, VIA NC, TOLERATING WELL, NO SOB OR RESP DISTRESS. PT NEEDS HAVE BEEN MET, VITAL SIGNS ARE STABLE, NO ACUTE CHANGES OCCURRED THROUGHOUT THE SHIFT. SAFETY MEASURES HAVE BEEN IMPLEMENTED, CALL LIGHT IS WITHIN REACH, BED IS IN LOWEST AND LOCKED POSITION, SIDE RAILS UP X2, PT HAS BEEN ENDORSED TO NIGHTSHIFT RN FOR LAMIN.
--- NOTE | 2019-04-16 19:41 | NUR ---
MS RN OPENING NOTE RECEIVED PATIENT AMBULATING AROUND UNIT. A/OX3. SEEMS VERY ANXIOUS. TOLERATING ROOM AIR AT THIS TIME. RESPIRATIONS ARE EVEN AND UNLABORED. NO S/S SOB NOTED. IN NO APPARENT DISTRESS. IV ACCESS IN RIGHT WRIST INFILTRATED WILL PLACE A NEW LINE. INFORMED PATIENT SHE WILL BE NPO AT MIDNIGHT. BED IS LOW AND LOCKED, HOB ELEVATED, SIDE RIALS UPX2. CALL LIGHT WITHIN REACH. WILL CONTINUE TO MONITOR.
--- NOTE | 2019-04-16 20:45 | NUR ---
MS RN NOTE DID NOT ADMINISTER SCHEDULED HEPARIN 5000 UNITS D/T PATIENT WILL BE GOING TO SURGERY TOMORROW. WILL CONTINUE TO MONITOR.
[2019-04-16] MEDS: ACETAMINOPHEN 325 MG TABLET PO PRN (21:03)
--- NOTE | 2019-04-16 21:04 | NUR ---
MS RN NOTE ADMINISTERED PRN TYLENOL 650MG FOR C/O HEADACHE. WILL CONTINUE TO MONITOR.
--- NOTE | 2019-04-16 23:00 | NUR ---
MS RN NOTE CALLED DR. REYES TO INFORM OF PATIENT REQUEST FOR XANAX. PER PATIENTS MED RECON THERE WAS NO XANAX REPORTED. MD DID NOT GIVEN ANY ORDER AND STATED THE PATIENT NEEDS TO CONFIRM WITH THEIR PHARMACY OR SHOULD PROF WITH MEDICATION BOTTLE. INFORMED PATIENT AND SHE BECAME UPSET BECAUSE SHE LIVES WITH HER FATHER AND HE WILL NOT COME AT THIS HOUR.
--- NOTE | 2019-04-16 23:06 | NUR ---
MS RN NOTE ADMINISTERED PRN ZOFRAN 4MG PER REQUEST FROM PATIENT FOR NAUSEA. WILL CONTINUE TO MONITOR.
--- NOTE | 2019-04-16 23:15 | NUR ---
MS RN NOTE CALLED DR. RIVERA TO INFORM PATIENT WAS NOT ABLE TO OBTAIN VERIFICATION OF MED AND WOULD LIKE AN ORDER FOR AMBIEN. MD ASKED IF SHE WILL TAKE IT, PATIENT STATED SHE WOULD LIKE ANYTHING FOR SLEEP. MD TELEPHONE ORDER AMBIEN 5MG FOR SLEEP QHS PRN. ORDER READ BACK, NOTED AND CARRIED OUT.
[2019-04-16] MEDS: ZOLPIDEM TARTRATE 5 MG TABLET PO PRN (23:24)
--- NOTE | 2019-04-16 23:24 | NUR ---
MS RN NOTE ADMINISTERED PRN AMBIEN 5MG PER PATIENT REQUEST. WILL CONTINUE TO MONITOR.
[2019-04-17] VITALS: BP 179/100
--- NOTE | 2019-04-17 | NUR ---
MS RN NOTE PLACED SIGN ON PATIENTS DOOR AND ON TABLE STATING PATIENT IS NPO. CLEARED TABLE OF ALL FOOD AND DRINK. PATIENTS STATES THEY UNDERSTAND THE NPO STATUS. WILL CONTINUE TO MONITOR.
[2019-04-17 04:00] VITALS: BP_SYST 169; BP_DIAS 106; BP_DIAS 109
--- NOTE | 2019-04-17 04:34 | NUR ---
MS RN NOTE ADMINISTERED PRN APRESOLINE 10MG FOR BP 169/109 HR 86. WILL CONTINUE TO MONITOR.
--- NOTE | 2019-04-17 06:14 | NUR ---
MS RN CLOSING NOTE PATIENT IN BED. A/OX3. TOLERATING ROOM AIR. RESPIRATIONS ARE EVEN AND UNLABORED. NO SOB NOTED. NO DISTRESS NOTED. NO C/O PAIN THROUGHOUT SHIFT. MANAGED HIGH BP WITH APRESOLINE 10 MG. IV ACCESS IN RIGHT HAND #23 PATENT AND SALINE LOCKED. PATIENT MAINTAINED NPO STATUS. BED REMAINS LOW AND LOCKED, HOB ELEVATED, SIDE RIALS UPX2. CALL LIGHT WITHIN REACH. WILL ENDORSE TO NEXT SHIFT.
[2019-04-17 06:44] LABS: BASOPHILS % (AUTO) 0.1 % (0.0-2.0); EOSINOPHILS % (AUTO) 1.3 % (0.0-6.0); HEMATOCRIT 33 % (33-45); HEMOGLOBIN 10.8 g/dL (11.5-14.8); LYMPHOCYTES # (AUTO) 1.6 /CMM (0.8-4.8); LYMPHOCYTES % (AUTO) 21.6 % (20.0-44.0); MEAN CORPUSCULAR HGB CONC 33 g/dl (31.0-36.0); MEAN CORPUSCULAR VOLUME 87 fL (82-100); MONOCYTES # (AUTO) 0.9 /CMM (0.1-1.30); MONOCYTES % (AUTO) 11.6 % (2.0-12.0); NEUTROPHILS # (AUTO) 4.9 /CMM (1.8-8.9); NEUTROPHILS % (AUTO) 65.4 % (43.0-81.0); PLATELET COUNT (AUTO) 329 /CMM (150-450); RED BLOOD CELL COUNT(AUTO) 3.79 MIL/uL (4.0-5.2); WHITE BLOOD COUNT (AUTO) 7.4 K/uL (4.3-11.0)
[2019-04-17 07:06] LABS: CALCIUM, SERUM 10.2 mg/dL (8.5-10.1); POTASSIUM 4.3 mmol/L (3.5-5.1)
[2019-04-17 07:08] LABS: CREATININE 8.5 mg/dL (0.6-1.3)
--- NOTE | 2019-04-17 07:20 | NUR ---
MS RN OPENING NOTE RECEIVED BEDSIDE REPORT. PT AWAKE IN BED, ALERT AND ORIENTED X 4, ANXIOUS, ON ROOM AIR, SATURATING WELL, RESPIRATIONS EVEN AND UNLABORED, NO SIGNS OF RESPIRATORY DISTRESS NOTED. NPO SINCE 04/17/2019 MIDNIGHT. IV SITE ON RIGHT HAND G24 INTACT, PATENT, COVERED WITH CLEAN DRESSING, WITH HEP LOCK IN PLACE. BED IN LOW POSITION, LOCKED, CALL LIGHT WITHIN REACH. SURGERY SCHEDULED FOR 10:30. SPOKE WITH OR NURSE WHO STATED PT WILL BE PICKED UP AT 10:15/ 10:20.
[2019-04-17 08:00] VITALS: BP 147/71
[2019-04-17] MEDS: VITAMIN B COMP W-C 1 TAB TABLET PO SCH (08:27)
[2019-04-17] MEDS: ISOSORBIDE MONONITRATE (30MG) 30 MG TAB.SR.24H PO SCH (08:28)
[2019-04-17] MEDS: CALCIUM ACETATE 667 MG TABLET PO SCH ×3 (08:29→17:12)
[2019-04-17] MEDS: LABETALOL HCL (100MG) 100 MG TABLET PO SCH ×2 (08:29→21:05)
[2019-04-17] MEDS: LOSARTAN POTASSIUM 50 MG TABLET PO SCH (08:31)
[2019-04-17] MEDS: HEPARIN SODIUM, PORCINE 5000 UNITS/1 ML VIAL SQ SCH ×2 (08:31→21:04)
--- NOTE | 2019-04-17 08:31 | NUR ---
DID NOT ADMINISTER SCHEDULED HEPARIN DUE TO UPCOMING SURGERY
[2019-04-17] MEDS: predniSONE 5 MG TABLET PO SCH (08:36)
[2019-04-17] MEDS: NITROGLYCERIN 30 GM TUBE TP SCH ×2 (08:38→21:05)
[2019-04-17] MEDS ORDERED: ATRACURIUM 100MG/10 ML MDV IV ONE (10:49)
[2019-04-17] MEDS ORDERED: HYDROMORPHONE INJ 2 MG/ML DISP.SYRIN ONE (10:49)
[2019-04-17] MEDS ORDERED: LORAZEPAM INJ 2 MG/ML VIAL IV ONE (11:00)
[2019-04-17] MEDS ORDERED: LIDOCAINE 1%-EPI 1:100,000 20 ML VIAL ONE (12:04)
[2019-04-17] MEDS ORDERED: BUPIVACAINE 0.5 % PF 150 MG/30 ML VIAL ONE (12:04)
[2019-04-17] MEDS ORDERED: HEPARIN SODIUM, PORCINE 1,000 UNIT/ML VIAL ONE (12:28)
[2019-04-17] MEDS ORDERED: ONDANSETRON HCL/PF 4 MG/2 ML VIAL ONE (13:01)
[2019-04-17] MEDS ORDERED: METOCLOPRAMIDE HCL 10 MG/2 ML VIAL ONE (13:06)
[2019-04-17 16:00] VITALS: BP 151/82
[2019-04-17] MEDS: ACETAMINOPHEN 325 MG TABLET PO PRN (16:55)
[2019-04-17] MEDS: ATORVASTATIN 40 MG TABLET PO SCH (17:12)
--- NOTE | 2019-04-17 17:53 | NUR ---
Per Dr. Olvera request- homehealth referral faxed to [facility] [phone], spoke with Mak meza admission. Addendum: 04/17/19 at 1755 by ANTHONY ESPINOSA RN Amended: Links added.
[2019-04-17 20:00] VITALS: BP 147/83
[2019-04-17] MEDS: ONDANSETRON 4 MG TAB.RAPDIS PO PRN (22:06)
[2019-04-17] MEDS: ZOLPIDEM TARTRATE 5 MG TABLET PO PRN (22:06)
[2019-04-18] MEDS: ACETAMINOPHEN 325 MG TABLET PO PRN ×2 (01:24→11:21)
[2019-04-18 04:00] VITALS: BP 131/83
--- NOTE | 2019-04-18 07:42 | NUR ---
RN NOTES RECEIVED PATIENT A0X4, BREATHING NORMAL NO SOB NOTED. SKIN INTACT WARM AND DRY TO TOUCH. RT HAND 22G IV INTACT FLUSHED WELL. VITAL SIGNS WNL. PERITONEAL DIALYSIS CATH IN PLACE. DISCUSS PLAN OF CARE WITH PATIENT PATIENT STATED SHE WANTED TO GO HOME. SAFETY MEASURES IN PACE. BED IN LOW AND LOCKED POSITION. CALL LIGHT WITHIN REACH. WILL CONT TO MONITOR CLOSELY.
[2019-04-18 08:00] VITALS: BP 149/87
[2019-04-18] MEDS: VITAMIN B COMP W-C 1 TAB TABLET PO SCH (08:28)
[2019-04-18] MEDS: ISOSORBIDE MONONITRATE (30MG) 30 MG TAB.SR.24H PO SCH (08:28)
[2019-04-18] MEDS: LABETALOL HCL (100MG) 100 MG TABLET PO SCH (08:29)
[2019-04-18] MEDS: predniSONE 5 MG TABLET PO SCH (08:29)
[2019-04-18] MEDS: LOSARTAN POTASSIUM 50 MG TABLET PO SCH (08:30)
[2019-04-18] MEDS: HEPARIN SODIUM, PORCINE 5000 UNITS/1 ML VIAL SQ SCH (08:31)
[2019-04-18] MEDS: CALCIUM ACETATE 667 MG TABLET PO SCH (08:33)
[2019-04-18 08:47] VITALS: BP 149/87
[2019-04-18] MEDS: NITROGLYCERIN 30 GM TUBE TP SCH (08:47)
[2019-04-18 09:53] LABS: POTASSIUM 4.5 mmol/L (3.5-5.1)
[2019-04-18 09:55] LABS: CREATININE 8.6 mg/dL (0.6-1.3)
--- NOTE | 2019-04-18 11:21 | NUR ---
RN NOTES PRN TYLENOL 650MG PO GIVEN FOR LEFT LOWER QUADRANT PAIN 5/10. WILL REASSESS THE PAIN FOR EFFECTIVENESS.
--- NOTE | 2019-04-18 12:20 | NUR ---
RN NOTES PER PATIENT TYLENOL WAS EFFECTIVE PAIN LOWER TO 0/10.
--- NOTE | 2019-04-18 12:30 | NUR ---
FIRE PILOT NOTES PATIENT IN STABLE CONDITION ALERT ORIENTED X4. DENIES ANY PAIN OR DISCOMFORT. BREATHING NORMAL NO SOB NOTED. SKIN INTACT WARM AND DRY TO TOUCH. EXIT CARE PACKET PROVIDED AND SIGNED. EDUCATION GIVEN. RIGHT HAND IV REMOVED NO S/S OF BLEEDING NO SWELLING NO INFECTION NOTED. BELONGINGS SENT WITH THE PATIENT. VITAL SIGNS STABLE. PATIENT LEFT THE UNIT ACCOMPANIED BY FATHER.
== END 2019-04-18 13:00 | disposition home health service (06) | DRG 981 ==
LOC: ER 19:08 → ICU 21:01 → TELE1 04-15 17:58 → MEDSG1 04-16 08:02
PROVIDERS: ADMIT Student in an Organized Health Care Education/Training Program; ATTEND Internal Medicine
PROC: 5A09357 Assistance with Respiratory Ventilation, Less than 24 Consecutive Hours, Continuous Positive Airway Pressure (ICD-10-PCS; principal; 2019-04-14)
PROC: 5A1D70Z Performance of Urinary Filtration, Intermittent, Less than 6 Hours Per Day (ICD-10-PCS; 2019-04-14)
PROC: 0WHG43Z Insertion of Infusion Device into Peritoneal Cavity, Percutaneous Endoscopic Approach (ICD-10-PCS; 2019-04-17)
PROC: 0DQU4ZZ Repair Omentum, Percutaneous Endoscopic Approach (ICD-10-PCS; 2019-04-17)
PROC: 0DQE4ZZ Repair Large Intestine, Percutaneous Endoscopic Approach (ICD-10-PCS; 2019-04-17)
DX: I13.2 Hypertensive heart and chronic kidney disease with heart failure and with stage 5 chronic kidney disease, or end stage renal disease (principal); I50.33 Acute on chronic diastolic (congestive) heart failure; I21.A1 Myocardial infarction type 2; J96.01 Acute respiratory failure with hypoxia; N18.6 End stage renal disease; E44.1 Mild protein-calorie malnutrition; M31.0 Hypersensitivity angiitis; Q43.8 Other specified congenital malformations of intestine; Z99.2 Dependence on renal dialysis; E78.1 Pure hyperglyceridemia; F41.9 Anxiety disorder, unspecified; E88.09 Other disorders of plasma-protein metabolism, not elsewhere classified; D63.1 Anemia in chronic kidney disease; N25.0 Renal osteodystrophy; Z68.33 Body mass index [BMI] 33.0-33.9, adult
CPT/HCPCS: 36415; 36600; 71045-TC; 80048-TC; 80053-TC; 80061-TC; 80076-TC; 82803-TC; 83735-TC; 83880; 84100-TC; 84484-TC; 84702-TC; 85025-TC; 85730-TC; 86706; 86850-TC; 87081-TC; 87340; 90935-TC; 93307-TC; 99082-TC; G0378; J0360; J0690; J1100; J1170; J1644; J1940; J2060; J2405; J2704; J2710; J2765; J3490; J7512; Q0162

== ENCOUNTER 2019-05-12 22:01 | Emergency (ER) | payer MEDICARE, OTHER ==
[~2019-05-12] VITALS: Ht 154.9 cm; Wt 74.8 kg
[~2019-05-12 22:01] MED LIST changes: -AMLO10TA7 PO; +DICY10CA13 PO; +LOSA100T31 PO; -ZOLP5TAB8 PO
--- NOTE | 2019-05-12 22:15 | NUR ---
BIBRA FOR C/O SOB. PT SEEMS VERY ANXIOUS AND UNABLE TO STAY STILL. SATTING 100% ON NON DAVID-BREATHER. PT WAS PLACED ON A MONITOR . NOTED W/ A RCW HD CATH. REPORTED LAST HD ON SUNDAY. WILL CONT TO MONITOR ,
--- NOTE | 2019-05-12 22:24 | NUR ---
BLOOD WAS DRAWN AND SENT TO THE LAB
[2019-05-12] MEDS ORDERED: ALBUTEROL FS 2.5 MG/3 ML VIAL.NEB NEB ONE (22:30)
[2019-05-12 22:38] LABS: BASOPHILS # (AUTO) 0.1 /CMM (0.0-0.2); HEMATOCRIT 31 % (33-45); HEMOGLOBIN 9.8 g/dL (11.5-14.8); LYMPHOCYTES # (AUTO) 1.6 /CMM (0.8-4.8); LYMPHOCYTES % (AUTO) 13.9 % (20.0-44.0); MEAN CORPUSCULAR HGB CONC 31 g/dl (31.0-36.0); MEAN CORPUSCULAR VOLUME 90 fL (82-100); MONOCYTES # (AUTO) 0.3 /CMM (0.1-1.30); MONOCYTES % (AUTO) 2.9 % (2.0-12.0); NEUTROPHILS # (AUTO) 9.5 /CMM (1.8-8.9); NEUTROPHILS % (AUTO) 81.2 % (43.0-81.0); PLATELET COUNT (AUTO) 465 /CMM (150-450); RED BLOOD CELL COUNT(AUTO) 3.49 MIL/uL (4.0-5.2); WHITE BLOOD COUNT (AUTO) 11.7 K/uL (4.3-11.0)
[2019-05-12] MEDS ORDERED: ALBUTEROL FS 2.5 MG/3 ML VIAL.NEB ONE (22:45)
--- NOTE | 2019-05-12 22:48 | NUR ---
RECEIVING BREATHING TX
[2019-05-12 23:02] LABS: ALBUMIN 3.5 g/dL (3.4-5.0); BILIRUBIN,DIRECT 0.1 mg/dL (0.0-0.2); BILIRUBIN,TOTAL 0.4 mg/dL (0.2-1.0); CALCIUM, SERUM 10.2 mg/dL (8.5-10.1); POTASSIUM 5.5 mmol/L (3.5-5.1); TOTAL PROTEIN, SERUM 7.9 g/dL (6.4-8.2)
[2019-05-12 23:04] LABS: CREATININE 8.4 mg/dL (0.6-1.3)
--- NOTE | 2019-05-12 23:10 | NUR ---
RT pt was on 15 l nrb upon entering room. pt given breathing tx per md order. pre treatment pt had expiratory wheeze. post treatment pt sounds clear. no sob. pt states feeling much better.
--- NOTE | 2019-05-13 00:09 | NUR ---
Patient does not wish to proceed with medical care recommended by Dr. Jane. Patient given information related to possible complications, up to and including , which could occur as a result of leaving the hospital at this time. Patient verbalizes understanding of risks involved due to leaving against medical advice. Patient has signed AMA form. IV removed. Catheter intact and site benign. Pressure and 4x4 applied to site. No bleeding noted.Pt ambulatory with a steady gait
[2019-05-13 00:11] VITALS: BP 171/84
== END 2019-05-13 00:11 | disposition left against medical advice (07) ==
LOC: ER 22:01
DX: R06.02 Shortness of breath (principal); F17.200 Nicotine dependence, unspecified, uncomplicated; Z79.899 Other long term (current) drug therapy
CPT/HCPCS: 36415; 71045-TC; 80048-TC; 80076-TC; 83880; 84484-TC; 85025-TC

== ENCOUNTER 2020-03-06 03:17 | Inpatient (IN) | payer MEDICARE, OTHER ==
[~2020-03-06] VITALS: Ht 154.9 cm; Wt 79.8 kg
--- NOTE | 2020-03-06 03:21 | NUR ---
Note undone in EDM - 03/06/20 at 0455 by CYNTHIA pt bibra c/o of sob, anxiety, and weakness. Pt 93%RA. Pt hyperventalating and appears anxious. pt aaox4. Upon arrival to ER, pt complains of a sharp pain in her chest and in her back. Pt states that she does pertoneal dialysis at home and did her treatment on sunday, but for an unknown amount of time. Pt has 18g lt ac and 20g right hand. pt attached to monitor and pox. pt made comfortable with blanket and call light within reach.
--- NOTE | 2020-03-06 03:21 | NUR ---
pt bibra c/o of sob, anxiety, and weakness. Pt 93%RA. Pt hyperventalating and appears anxious.Pt placed on 2L via NC. pt aaox4. Upon arrival to ER, pt complains of a sharp pain in her chest and in her back. Pt states that she does pertoneal dialysis at home and did her treatment on sunday, but for an unknown amount of time. Pt has 18g lt ac and 20g right hand. pt attached to monitor and pox. pt made comfortable with blanket and call light within reach.
--- NOTE | 2020-03-06 03:23 | NUR ---
covid swab sent to lab
[2020-03-06] MEDS ORDERED: LORAZEPAM INJ 2 MG/ML VIAL IV ONE (04:00)
[2020-03-06] MEDS ORDERED: LORAZEPAM INJ 2 MG/ML VIAL ONE (04:03)
[2020-03-06] MEDS ORDERED: IV NS 0.9% 500 ML BAG IV ONE (04:30)
[2020-03-06 05:01] LABS: CALCIUM, SERUM 7.5 mg/dL (8.5-10.1); CARBON DIOXIDE 19 mmol/L (21-32); CHLORIDE 87 mmol/L (98-107); GLUCOSE 136 mg/dL (74-106); POTASSIUM 3.9 mmol/L (3.5-5.1); SODIUM SERUM 135 mmol/L (136-145)
[2020-03-06 05:13] LABS: ALANINE AMINOTRANSFERASE 68 U/L (12-78); ALBUMIN 2.1 g/dL (3.4-5.0); ALKALINE PHOSPHATASE 214 U/L (46-116); ASPARTATE AMINOTRANSFERASE 39 U/L (15-37); BILIRUBIN,DIRECT 0.2 mg/dL (0.0-0.2); BILIRUBIN,TOTAL 0.5 mg/dL (0.2-1.0)
[2020-03-06 05:15] LABS: CREATININE 11.3 mg/dL (0.6-1.3); UREA NITROGEN, BLOOD 95 mg/dL (7-18)
[2020-03-06 05:31] LABS: BASOPHILS % (AUTO) 0.1 % (0.0-2.0); EOSINOPHILS % (AUTO) 0.1 % (0.0-6.0); HEMATOCRIT 34 % (33-45); HEMOGLOBIN 10.5 g/dL (11.5-14.8); LYMPHOCYTES # (AUTO) 0.3 /CMM (0.8-4.8); LYMPHOCYTES % (AUTO) 1.5 % (20.0-44.0); MEAN CORPUSCULAR HGB CONC 31 g/dl (31.0-36.0); MEAN CORPUSCULAR VOLUME 91 fL (82-100); MONOCYTES # (AUTO) 0.2 /CMM (0.1-1.30); NEUTROPHILS # (AUTO) 18.3 /CMM (1.8-8.9); NEUTROPHILS % (AUTO) 97.3 % (43.0-81.0); PLATELET COUNT (AUTO) 523 /CMM (150-450); RED BLOOD CELL COUNT(AUTO) 3.79 MIL/uL (4.0-5.2); WHITE BLOOD COUNT (AUTO) 18.8 K/uL (4.3-11.0)
[2020-03-06] MEDS ORDERED: ASPIRIN 325 MG TABLET ONE (05:48)
--- NOTE | 2020-03-06 05:56 | NUR ---
covid swab sent to lab
[2020-03-06] MEDS ORDERED: ASPIRIN 325 MG TABLET PO SCH (06:00)
--- NOTE | 2020-03-06 06:06 | NUR ---
report given to Cathy for beto.
--- NOTE | 2020-03-06 06:50 | NUR ---
MECHANICAL CAR CHECKER NOTES RECEIVED PATIENT IN FROM ER VIA [facility] SAFELY TRANSFERRED TO BED, AWAKE ALERT AND ORIENTED X4, RESPIRATION EVEN AND UNLABORED WITH EQUAL RISE AND FALL OF CHEST, ON 4 L VIA NC TOLERATED WELL. IV SITE TO LEFT AC AND LEFT FA INTACT AND PATENT, VS ASSESSED ORIENTED TO STAFF AND CALL LIGHT AND KEPT WITHIN REACH. SAFETY PRECAUTIONS RENDERED, LOW BED AND LOCKED BED ALARM IN PLACE, TV PLACED PER PT REQUEST.97/61,64,93% ON 4 L ,18,97.6. WILL ENDORSE TO NEXT SHIFT FOR CONTINUITY OF CARE.
[2020-03-06] MEDS ORDERED: ACETAMINOPHEN 325 MG TABLET PO PRN (07:00)
[2020-03-06] MEDS ORDERED: ONDANSETRON HCL/PF 4 MG/2 ML VIAL IVP PRN (07:00)
[2020-03-06] MEDS ORDERED: MORPHINE SULFATE INJ 2 MG/ML DISP.SYRIN IV PRN (07:00)
[2020-03-06] MEDS ORDERED: ALBUTEROL SULFATE INH 18 GM HFA.AER.AD IH PRN (07:00)
[2020-03-06] MEDS ORDERED: DICYCLOMINE HCL 10 MG CAPSULE PO PRN (07:00)
[2020-03-06] MEDS ORDERED: NITROGLYCERIN 0.4 MG/TAB BOTTLE SL PRN (07:00)
--- NOTE | 2020-03-06 07:10 | NUR ---
CRM MANAGER OPENING NOTE RECEIVED PT IN BED AT THIS TIME. AOX4. PT ABLE TO VERBALIZE NEEDS. NO C/O PAIN AT THIS TIME. PT NOTED RESTLESS. PT NOTED ON 4LPM. PT REPOSITIONED, KEPT COMFORTABLE. SKIN INTACT. ABDOMINAL PERITONEAL DIALYSIS SITE NOTED, CLEAN AND DRY. PT ON EXTERNAL CARDIAC TELE MONITOR READING ST 113. IV ACCESS NOTED IN LEFT HAND G# 20 AND LAC #20, BOTH INTACT, PATENT AND FLUSHING WELL. RESPIRATORY AND SAFETY PRECAUTIONS IN PLACE AND MAINTAINED AT ALL TIMES. BED IN LOWEST LOCKED POSITION, SIDE RAILS UP, HOB ELEVATED, TABLE AND CALL LIGHT WITHIN REACH. WILL CONTINUE TO MONITOR.
[2020-03-06 07:49] LABS: B-TYPE NATRIURETIC PEPTIDE 450752 PG/ML (0-125)
[2020-03-06] MEDS ORDERED: MEROPENEM 500 MG in IV NS 0.9% 50 ML IV SCH (08:00)
[2020-03-06] MEDS ORDERED: CALCIUM ACETATE 667 MG TABLET PO SCH (08:00)
--- NOTE | 2020-03-06 08:08 | NUR ---
RECEIVED ORDERS FROM DR KOTHARI FOR ATIVAN 0.25MG IV Q6HR PRN FOR ANXIETY. ORDERS READ BACK AND CARRIED OUT. WILL CONTINUE TO MONITOR
--- NOTE | 2020-03-06 08:10 | NUR ---
RECEIVED ORDERS FROM DR WELCH FOR PERITONEAL FLUID FOR CULTURE AND CELL COUNT, FLUID COLLECTED BY GABRIEL, DIALYSIS NURSE. WILL SENT FLUID TO LAB AND CONTINUE WITH PLAN OF CARE
[2020-03-06] MEDS ORDERED: LORAZEPAM INJ 2 MG/ML VIAL IV PRN (08:30)
[2020-03-06 08:42] LABS: BASOPHILS % (AUTO) 0.1 % (0.0-2.0); HEMATOCRIT 33 % (33-45); LYMPHOCYTES # (AUTO) 0.2 /CMM (0.8-4.8); LYMPHOCYTES % (AUTO) 1.5 % (20.0-44.0); MEAN CORPUSCULAR HGB CONC 31 g/dl (31.0-36.0); MEAN CORPUSCULAR VOLUME 90 fL (82-100); MONOCYTES # (AUTO) 0.1 /CMM (0.1-1.30); MONOCYTES % (AUTO) 0.8 % (2.0-12.0); NEUTROPHILS # (AUTO) 12.3 /CMM (1.8-8.9); NEUTROPHILS % (AUTO) 97.6 % (43.0-81.0); PLATELET COUNT (AUTO) 432 /CMM (150-450); RED BLOOD CELL COUNT(AUTO) 3.61 MIL/uL (4.0-5.2); WHITE BLOOD COUNT (AUTO) 12.7 K/uL (4.3-11.0)
[2020-03-06] MEDS ORDERED: VANCOMYCIN 1 GM in IV D5W 250 ML IV ONE (09:00)
[2020-03-06] MEDS ORDERED: CARVEDILOL 6.25 MG TABLET PO SCH (09:00)
[2020-03-06] MEDS ORDERED: PANTOPRAZOLE 40 MG TABLET.DR PO SCH (09:00)
[2020-03-06] MEDS ORDERED: DOCUSATE SODIUM 100 MG CAPSULE PO SCH (09:00)
[2020-03-06] MEDS ORDERED: VIT B CMPLX 3/FA/VIT C/BIOTIN 1 TAB TABLET PO SCH (09:00)
[2020-03-06] MEDS ORDERED: predniSONE 5 MG TABLET PO SCH (09:00)
[2020-03-06] MEDS ORDERED: LOSARTAN POTASSIUM 50 MG TABLET PO SCH (09:00)
[2020-03-06] MEDS ORDERED: ASPIRIN EC 325 MG TABLET.DR PO SCH (09:00)
--- NOTE | 2020-03-06 09:20 | NUR ---
PT C/O OF NON RADIATING CHEST PAIN OF . VS WNL. PER PT REQUEST, NITROSTAT0.4MG SL Q5MIN PRN FOR CHEST PAIN. WILL CONTINUE TO MONITOR
--- NOTE | 2020-03-06 09:20 | NUR ---
ABBY, HOME ENERGY RATER REPORTED CRITICAL LAB VALUE, INR 10.0. DR KOTHARI MADE AWARE. AWAITING ORDERS. WILL CONTINUE TO MONITOR
[2020-03-06 09:55] LABS: D-DIMER 2.41 mg/L(FEU (0.17-0.50)
--- NOTE | 2020-03-06 10:00 | NUR ---
REASSESS PT FOR CHEST PAIN, PT STATED "I DO NOT HAVE CHEST PAIN NOW". WILL CONTINUE TO MONITOR
--- NOTE | 2020-03-06 10:10 | NUR ---
LAB REPORTED CRITICAL LAB VALUE, TROP 6.2, PHOS 9.8. DR KOTHARI MADE AWARE. NO ORDERS AT THIS TIME. WILL CONTINUE TO MONITOR Addendum: 03/06/20 at 1605 by ROCÍO CHISHOLM RN LAB REPORTED CRITICAL LAB VALUE, LACTIC ACID 6.2, TROP 1.2, PHOS 9.8. DR KOTHARI MADE AWARE. NO ORDERS AT THIS TIME. WILL CONTINUE TO MONITOR
--- NOTE | 2020-03-06 10:16 | NUR ---
RECEIVED ORDERS FOR ABGS FROM DR OWEN, ORDERS READ BACK AND CARRIED OUT, WILL CONTINUE TO MONITOR
[2020-03-06 10:26] LABS: ALBUMIN 1.8 g/dL (3.4-5.0); BILIRUBIN,TOTAL 0.4 mg/dL (0.2-1.0); CALCIUM, SERUM 7.2 mg/dL (8.5-10.1); MAGNESIUM 1.5 mg/dL (1.8-2.4); POTASSIUM 4.4 mmol/L (3.5-5.1); TOTAL PROTEIN, SERUM 6.4 g/dL (6.4-8.2)
[2020-03-06] MEDS ORDERED: PHYTONADIONE 5 MG TABLET PO ONE (10:30)
[2020-03-06 10:38] LABS: CREATININE 10.9 mg/dL (0.6-1.3)
[2020-03-06 10:39] LABS: PHOSPHORUS 9.3 mg/dL (2.5-4.9)
[2020-03-06 10:41] LABS: THYROID STIMULATING HORMONE 2.006 uIU/mL (0.358-3.74)
--- NOTE | 2020-03-06 11:00 | NUR ---
FAMILY DELIVERED PT'S PERITONEAL DIALYSIS AIRPORT RAMP SUPERVISOR. WILL CONTINUE WITH PLAN OF CARE
[2020-03-06 11:55] LABS: ABG BASE EXCESS -9.3 mmol/L; ABG OXYGEN SATURATION 99.9 % (92.0-98.5); ABG PCO2 27.4 mmHg (35.0-45.0); ABG PH 7.355 (7.350-7.450); ABG PO2 304.2 mmHg (75.0-100.0); AaDO2 381.4 mmHg; COHb 0.3 % (0.5-1.5); MetHb 1.6 % (0.0-1.5); SITE, ABG Left Brachial; VENT MODE, BG 15L NRB
[2020-03-06 12:00] VITALS: BP 138/64
[2020-03-06] MEDS ORDERED: METOPROLOL TARTRATE 50 MG TABLET PO SCH (12:00)
--- NOTE | 2020-03-06 12:00 | NUR ---
PT C/O OF ANXIETY. VS WNL. PT SATURATING @95% ON 4LPM VIA NC. PT REFUSED ATIVAN. PT REPOSITIONED FOR COMFORT. WILL CONTINUE TO MONITOR.
[2020-03-06 12:23] LABS: BAND % (MANUAL) 11 % (0.0-5.0); LYMPHOCYTES % (MANUAL) 1 % (16-48); METAMYELOCYTES % 4 % (0-0); MONOCYTES % (MANUAL) 2 % (0-11.0); MYELOCYTES % 4 % (0-0); NEUTROPHILS % (MANUAL) 78 (42-76)
--- NOTE | 2020-03-06 12:40 | NUR ---
PT ONGOING PERITONEAL DIALYSIS AT THIS TIME. WILL CONTINUE TO MONITOR
--- NOTE | 2020-03-06 12:45 | NUR ---
PT CALLED REQUESTING TO BE PULLED UP IN BED. PT C/O FEELING RESTLESS. NURSE AND FITTER / WELDER REPOSITIONED PT DESIRED BY PATIENT. WILL CONTINUE TO MONITOR
--- NOTE | 2020-03-06 12:55 | NUR ---
NURSE NOTIFIED DR DAVIS OF PT C/O RESTLESSNESS, NURSE AND DR DAVIS WALKED TO PT'S ROOM, PT NOTED UNRESPONSIVE, CPR INITIATED, CODE BLUE CALLED. CODE TEAM ARRIVED ON THE UNIT. ACLS PROTOCOL FOLLOWED WITH ADEQUATE CHEST COMPRESSIONS. PT TIME OF PRONOUNCED AT 1325.
[2020-03-06] MEDS ORDERED: PHYTONADIONE INJ 5 MG in IV D5W 50 ML IV ONE (13:00)
--- NOTE | 2020-03-06 13:30 | NUR ---
DR KOTHARI MADE AWARE OF PT'S .
--- NOTE | 2020-03-06 14:00 | NUR ---
THIAGO CHAO ([phone]), PT'S FATHER NOTIFIED. [employer] NOTIFIED. [employer]ORTEM PERFORMED.
[2020-03-06] MEDS ORDERED: DEXTROSE 50%-WATER 50 ML DISP.SYRIN IV ONE (14:05)
[2020-03-06] MEDS ORDERED: SODIUM BICARBONATE SYR 50 MEQ/50 ML DISP.SYRIN IV ONE (14:05)
[2020-03-06] MEDS ORDERED: CALCIUM CHLORIDE 1,000 MG/10 ML DISP.SYRIN IV ONE (14:05)
[2020-03-06] MEDS ORDERED: EPINEPHRINE (1:10,000) SYRINGE 1 MG/10 ML DISP.SYRIN IVP ONE (14:05)
[2020-03-06] MEDS ORDERED: FEE EMEERGENCY 1 MIN EA MC ONE (14:05)
--- NOTE | 2020-03-06 16:00 | NUR ---
THIAGO CHAO, PT'S FATHER UPDATED NURSE WITH MORTUARY([employer] - [phone]). PT TRANSPORTED TO [facility] WITH BELONGINGS.
--- NOTE | 2020-03-06 17:30 | NUR ---
PT'S FAMILY PICKED UP PT'S BELONGINGS.
[2020-03-06] MEDS ORDERED: ATORVASTATIN 40 MG TABLET PO SCH (22:00)
[2020-03-07] MEDS ORDERED: VANCOMYCIN POST DIALYSIS 500MG IV PRN ×2 (06:00)
== END 2020-03-06 13:25 | disposition expired | DRG 871 ==
LOC: ER 03:19 → UNDOADMIN 05:32 → TRANSITION 05:32 → ICUOV2 06:14 → TRANSITION 06:14 → ICUOV2 08:36 → UNDODISIN 13:25
PROVIDERS: ADMIT Internal Medicine; ATTEND Internal Medicine
PROC: 0BH18EZ Insertion of Endotracheal Airway into Trachea, Via Natural or Artificial Opening Endoscopic (ICD-10-PCS; principal; 2020-03-06)
PROC: 5A12012 Performance of Cardiac Output, Single, Manual (ICD-10-PCS; 2020-03-06)
PROC: 3E1M39Z Irrigation of Peritoneal Cavity using Dialysate, Percutaneous Approach (ICD-10-PCS; 2020-03-06)
DX: A41.9 Sepsis, unspecified organism (principal); J96.01 Acute respiratory failure with hypoxia; N18.6 End stage renal disease; D65 Disseminated intravascular coagulation [defibrination syndrome]; I50.33 Acute on chronic diastolic (congestive) heart failure; I21.A1 Myocardial infarction type 2; E43 Unspecified severe protein-calorie malnutrition; M31.0 Hypersensitivity angiitis; I13.2 Hypertensive heart and chronic kidney disease with heart failure and with stage 5 chronic kidney disease, or end stage renal disease; E87.2 Acidosis; D63.8 Anemia in other chronic diseases classified elsewhere; E78.5 Hyperlipidemia, unspecified; I25.2 Old myocardial infarction; Z99.2 Dependence on renal dialysis; E88.09 Other disorders of plasma-protein metabolism, not elsewhere classified; D72.829 Elevated white blood cell count, unspecified; Z20.822 Contact with and (suspected) exposure to COVID-19; Z79.52 Long term (current) use of systemic steroids; F41.9 Anxiety disorder, unspecified
CPT/HCPCS: 36415; 36600; 71045-TC; 80048-TC; 80053-TC; 80061-TC; 80076-TC; 82728-TC; 82962-TC; 83605-TC; 83735-TC; 83880; 84100-TC; 84443-TC; 84484-TC; 85025-TC; 85378-TC; 85610-TC; 85730-TC; 87081-TC; 90935-TC; G0378; J0171; J2060; J2185; J3370; J3430; J3490; J7040; J7060; J7512; U0003